=== PATIENT | female | born 1960 | race Caucasian/White ===

== ENCOUNTER → 2017-03-24 09:05 | Outpatient (CLI) | payer MEDICAID ==
[2013-05-07 09:53] VITALS: BMI 27.4
[~2017-03-24 09:05] MED LIST: ADVIL200 MG PO; ANORO ELLIPTA1 EACH INH; CIPRO500 MG PO; COREG 3.1253.125 MG PO; COREG6.25 MG PO; COVARYX TABLET1 TAB PO; LUNESTA2 M1 PO; NEXIUM20 MG PO; PRILOSEC10 MG PO; PRINIVIL20 MG PO; PROVENTIL HFA6.7 GM INH; PROZAC20 MG PO; PROZAC40 MG PO; RESTORIL7.5 MG PO; ROBAXIN-750750 MG PO; SPIRIVA18 MCG INH; SYMBICORT 80-10.2 GM INH; ULTRAM50 MG PO; VANSPAR7.5 MG PO; ZESTRIL20 MG PO
[2017-03-25 10:21] VITALS: BMI 22.9
== END | disposition home or self-care (01) ==
LOC: D.CT 09:05
DX: R10.11 Right upper quadrant pain (principal)

== ENCOUNTER 2017-03-24 16:35 | Inpatient (IN) | payer MEDICAID ==
[~2017-03-24] VITALS: Ht 172.7 cm; Wt 68.5 kg
[~2017-03-24 16:35] MED LIST changes: -ANORO ELLIPTA1 EACH INH; -COREG 3.1253.125 MG PO; -COVARYX TABLET1 TAB PO; -LUNESTA2 M1 PO; -NEXIUM20 MG PO; -PROVENTIL HFA6.7 GM INH; -PROZAC20 MG PO; -ZESTRIL20 MG PO
[2017-03-24 17:09] VITALS: BP 127/79
--- NOTE | 2017-03-24 17:30 | NUR ---
PT RECIEVED VIA DIRECT ADMISSION TO ROOM 2227 VIA ADMISSIONS. PIV SITED X 1 STICK 20 GA TO RIGHT FORARM TOLERATED WELL. PT IS AWAKE AND ALERT ORINETED X 3 LUNGS CLEAR BIALTERALLY BSA X 4 QUADS HAS RIGHT UPPER QUAD TENDERNESS WITH PALPATION ALSO COMPLAINS OF FLANK PAIN TO RIGHT SIDE. ORINETED TO ROOM AND CALL LIGHT SYSTEM.
[2017-03-24] MEDS ORDERED: ZESTRIL20 MG PO (17:33)
[2017-03-24] MEDS ORDERED: COREG 3.1253.125 MG PO (17:34)
[2017-03-24] MEDS ORDERED: PROZAC20 MG PO (17:34)
[2017-03-24] MEDS ORDERED: PROVENTIL HFA6.7 GM INH (17:35)
[2017-03-24] MEDS ORDERED: ANORO ELLIPTA1 EACH INH (17:35)
[2017-03-24] MEDS ORDERED: NEXIUM20 MG PO (17:35)
[2017-03-24] MEDS ORDERED: COVARYX TABLET1 TAB PO (17:36)
[2017-03-24] MEDS ORDERED: LUNESTA2 M1 PO (17:37)
[2017-03-24 18:02] VITALS: BP 127/79; BMI 23.0
[2017-03-24 18:39] LABS: BASOPHILS 0.4 % (0-2); EOSINOPHILS 4.9 % (0-7); HEMATOCRIT 41.2 % (36.0-48.0); HEMOGLOBIN 13.4 g/dL (12-16); IMMATURE GRANULOCYTES 0.3 % (0-5); LYMPHOCYTES 31.2 % (15-50); MCH 29.4 pg (26.0-34.0); MCHC 32.5 g/dL (31.0-37.0); MCV 90.4 fL (80.0-100.0); MEAN PLATELET VOLUME 9.9 fL (7.4-10.4); MONOCYTES 8.7 % (2-11); NEUTROPHILS 54.5 % (40-80); PLATELET COUNT 362 10x3/uL (130-400); RBC 4.56 10x6/uL (4.00-5.40); RDW 14.6 % (11.5-14.5); WBC 9.1 10x3/uL (4.8-10.8)
[2017-03-24 18:50] LABS: ALBUMIN 3.4 g/dL (3.4-5.0); ALKALINE PHOSPHATASE 54 U/L (46-116); ALT (SGPT) 38 U/L (10-68); BILIRUBIN - TOTAL 0.22 mg/dL (0.2-1.3); CALC OSMOLALITY 274 mosm/kg (275-300); CARBON DIOXIDE 28.5 mmol/L (21.0-32.0); CHLORIDE - SERUM 103 mmol/L (98-107); CREATININE - SERUM 0.8 mg/dL (0.6-1.3); GLUCOSE 79 mg/dL (74-106); PROTEIN - SERUM 7.3 g/dL (6.4-8.2); SODIUM 139 mmol/L (136-145); UREA NITROGEN 7 mg/dL (7-18); eGFR NON AFRICAN AMERICAN 78 mL/min (90-120)
[2017-03-24 20:00] VITALS: BP 144/72
--- NOTE | 2017-03-24 20:00 | NUR ---
PT RECEIVED SITTING UP IN BED WATCHING TELEVISION. ASSESSMENT COMPLETED PER FLOWSHEET. PT C/O PAIN IN RUQ. PT DENIES NEEDS AT THIS TIME. CALL LIGHT AND H2O IN PT REACH. BED IN LOW POSITION. SIDE RAILS UP X2.
--- NOTE | 2017-03-24 21:20 | NUR ---
ASSISTED WILNER DYSON IN SETTING UP THE PATIENT'S MAILROOM CLERK PUMP. KIEL EDUCATED THE PATIENT ON THE MEDICATION AND HOW THE MAILROOM CLERK PUMP WORKS. THE PATIENT VERBALIZED UNDERSTANDING. PATIENT HAS A GUEST AT BEDSIDE AND DENIES OTHER NEEDS AT THIS TIME. BED IN LOWEST POSITION AND CALL LIGHT WITHIN REACH. ENCOURAGED THE PATIENT TO CALL IF SHE HAS NEEDS.
[2017-03-25] VITALS (8 sets, daily range): BP systolic 93–133; BP diastolic 55–66; Ht 172.7 cm; Wt 68.5 kg
[2017-03-25 05:57] LABS: BASOPHILS 0.4 % (0-2); EOSINOPHILS 5.7 % (0-7); HEMATOCRIT 40.5 % (36.0-48.0); HEMOGLOBIN 12.9 g/dL (12-16); IMMATURE GRANULOCYTES 0.1 % (0-5); LYMPHOCYTES 31.1 % (15-50); MCH 29.1 pg (26.0-34.0); MCHC 31.9 g/dL (31.0-37.0); MCV 91.4 fL (80.0-100.0); MEAN PLATELET VOLUME 9.8 fL (7.4-10.4); MONOCYTES 9.6 % (2-11); NEUTROPHILS 53.1 % (40-80); PLATELET COUNT 362 10x3/uL (130-400); RBC 4.43 10x6/uL (4.00-5.40); RDW 14.7 % (11.5-14.5); WBC 8.4 10x3/uL (4.8-10.8)
[2017-03-25 06:10] LABS: CALC OSMOLALITY 276 mosm/kg (275-300); CALCIUM 8.4 mg/dL (8.5-10.1); CARBON DIOXIDE 27.7 mmol/L (21.0-32.0); CHLORIDE - SERUM 104 mmol/L (98-107); CREATININE - SERUM 0.8 mg/dL (0.6-1.3); GLUCOSE 96 mg/dL (74-106); POTASSIUM - SERUM 3.7 mmol/L (3.5-5.1); SODIUM 140 mmol/L (136-145); UREA NITROGEN 6 mg/dL (7-18); eGFR NON AFRICAN AMERICAN 78 mL/min (90-120)
--- NOTE | 2017-03-25 08:35 | NUR ---
PT RESTING IN BED WITH EYES OPEN CALL LIGHT IN REACH WILL MONITER PT DENIES PAIN CALL LIGHT IN REACH WILL MONITER
--- NOTE | 2017-03-25 14:56 | NUR ---
PT AOX4 RESP EVEN AND NONLABORED PT DENIES NEEDS AT THIS TIME. PT HERE FOR RENAL CANCER. IV TO RIGHT FOREARM PATENT AND INTACT SRX2 CALL LIGHT WITHIN REACH WITH CONTINUE TO MONITOR BED AT LOWEST SETTING
--- NOTE | 2017-03-25 17:54 | NUR ---
PT RESTING IN BED WITH EYES OPEN CALL LIGHT IN REACH NO PROBLEMS WILL MONITER
--- NOTE | 2017-03-25 20:00 | NUR ---
REC'D IN SITTING ON SIDE OF BED AWAKE AND ALERT. RESP EVEN AND UNLABORED WITH NO DISTRESS NOTED. CAN EXPRESS NEEDS AN WANTS. AMBULATED WITH SLOW AND STEADY GAIT. NO C/O NOTED OR VOICED.ASSESSMENT COMPLETED. C/L IN REACH AT BEDSIDE.
--- NOTE | 2017-03-26 02:51 | NUR ---
PT IS LYING FLAT IN BED WITH EASY RESPIRATIONS AND NO DISTRESS NOTED. THE ROOM IS DARK AND SHE IS SLEEPING. THE BED IS LOW, RAILS UP X'S 2 WITH THE CALL LGIHT AT HAND.
[2017-03-26 04:00] VITALS: BP 109/53
--- NOTE | 2017-03-26 07:15 | NUR ---
PATIENT RECEIVED UP AMBULATING IN ROOM WITHOUT ASSIST. NO SIGNS OF DISTRESS NOTED. DENIES NEEDS.
--- NOTE | 2017-03-26 08:15 | NUR ---
PATIENT SITTING UP IN BED ALERT. NO SIGNS OF DISTRESS NOTED. SCHEDULED MEDICATION ADMINISTERED. DENIES NEEDS. SIDE RAILS UP X2. BED IN LOW POSITION. CALL LIGHT AND SHOE PLANNER BUTTON IN REACH.
[2017-03-26 08:22] VITALS: BP 128/70
--- NOTE | 2017-03-26 10:45 | NUR ---
IV TO RIGHT WRIST SALINE LOCKED FOR SHOWER. DENIES NEEDS.
--- NOTE | 2017-03-26 11:30 | NUR ---
ALERT IN BED RESTING QUIETLY. RESPIRATIONS EVEN AND UNLABORED. SIDE RAILS UP X2. BED IN LOW POSITION. CALL LIGHT IN REACH. DENIES NEEDS.
[2017-03-26 14:04] VITALS: BP 87/54
--- NOTE | 2017-03-26 16:30 | NUR ---
PATIENT IN LOW BANUELOS POSITION RESTING QUIETLY. RESPIRATIONS EVEN AND UNLABORED. SIDE RAILS UP X2. BED IN LOW POSITION. CALL LIGHT IN REACH.
[2017-03-26 16:45] VITALS: BP 118/60
--- NOTE | 2017-03-26 20:00 | NUR ---
REC'D IN BED AWAKE AND ALERT. RESP EVEN AND UNLABORED WITH NO DISTRESS NOTED. NURSE SITTER EXPRESS NEEDS AND WANTS. TURN AND REPOSITION SELF AB WANDA. NO C/O NOTED OR VOICED AT THIS TIME. ASSESSMENT COMPLETED. C/L IN REACH AT BEDSIDE.
[2017-03-26 20:22] VITALS: BP 109/52
--- NOTE | 2017-03-26 23:28 | NUR ---
PATIENT RESTING IN BED AND DENIES NEEDS AT THIS TIME. BED IN LOWEST POSITION AND CALL LIGHT WITHIN REACH. ENCOURAGED THE PATIENT TO CALL IF SHE HAS NEEDS.
[2017-03-27] VITALS (7 sets, daily range): BP systolic 102–165; BP diastolic 46–80
--- NOTE | 2017-03-27 07:30 | NUR ---
PT ASSESSMENT COMPLETE AWAKE AND ALERT ORIENTED X 3 LUNGS CLEAR BIALTERALLY BSA X 4 QUADS PT DENIES BM X 3 DAYS REQUESTING MIRALAX. WILL SPEAK TO REGUARDING NEW ORDER. RESITED PIV UPON ASSESSMENT OF ORIGINAL SITE WAS RED AND BECOMING PAINFUL NO STREAKING NOTED REMOVED AND RESITED TO INNER RIGHT FORARM. 20 GA X 1 STICK TOLERATED WELL ORIGINAL PIV D/C TIP INTACT.
[2017-03-27 10:38] LABS: BASOPHILS 0.5 % (0-2); EOSINOPHILS 4.9 % (0-7); HEMATOCRIT 42.7 % (36.0-48.0); HEMOGLOBIN 13.5 g/dL (12-16); IMMATURE GRANULOCYTES 0.2 % (0-5); LYMPHOCYTES 24.9 % (15-50); MCH 29.2 pg (26.0-34.0); MCHC 31.6 g/dL (31.0-37.0); MCV 92.4 fL (80.0-100.0); MEAN PLATELET VOLUME 9.6 fL (7.4-10.4); MONOCYTES 9.5 % (2-11); PLATELET COUNT 330 10x3/uL (130-400); RBC 4.62 10x6/uL (4.00-5.40); RDW 14.8 % (11.5-14.5); WBC 8.5 10x3/uL (4.8-10.8)
[2017-03-27 10:51] LABS: ALBUMIN 3.2 g/dL (3.4-5.0); ALKALINE PHOSPHATASE 60 U/L (46-116); ALT (SGPT) 67 U/L (10-68); CALC OSMOLALITY 270 mosm/kg (275-300); CALCIUM 8.8 mg/dL (8.5-10.1); CARBON DIOXIDE 31.2 mmol/L (21.0-32.0); CHLORIDE - SERUM 100 mmol/L (98-107); CREATININE - SERUM 0.7 mg/dL (0.6-1.3); GLUCOSE 88 mg/dL (74-106); PROTEIN - SERUM 7.6 g/dL (6.4-8.2); SODIUM 137 mmol/L (136-145); UREA NITROGEN 7 mg/dL (7-18); eGFR NON AFRICAN AMERICAN > 90 mL/min (90-120)
--- NOTE | 2017-03-27 11:15 | NUR ---
PT TO OR AT THIS TIME FOR URETERSCOPY AND BX PREOPPED PER ORDER.
--- NOTE | 2017-03-27 13:29 | NUR ---
RETURNED FROM OR AWAKE AND ALERT ORINETD X 3 ASSISTED TO BATHROOM PT EMPTIED BLADDER OF 1000 ML BLOOD TINGED URINE
--- NOTE | 2017-03-27 15:23 | NUR ---
PT RESTING WELL NO ACUTE DISTRESS NOTED VITAL SIGNS WNL CALL LIGHT IN REACH SIDE RAILS UP X 2
--- NOTE | 2017-03-27 17:38 | NUR ---
Patient Name: MAGDALENA FREEMAN Admission Status: Urgent Accout number: [id number] Admission Date: 03-24-2017 : 1960 Admission Diagnosis: Attending: MAYDA Current LOS: 3 Anticipated DC Date: 03-29-2017 Planned Disposition: Home Primary Insurance: [employer] [place] Discharge Planning Comments: CM MET WITH PATIENT REGARDING D/C NEEDS AND PLANS. PATIENT STATED SHE LIVES WITH HER BOYFRIEND (RAÚL VALERA) AND HE WILL DRIVE HER HOME AT DISCHARGE. PATIENT STATED SHE HAS 3 STEPS W/RAILS TO ENTER HOME AND NO STAIRS INSIDE HOME. PATIENT STATED SHE IS INDEPENDENT AND HAS NO DME AT HOME. PATIENTS PCP IS DR. ORONA AND PHARMACY IS [facility] ON [address] PATIENT REF. HOME HEALTH AND HAD NO OTHER NEEDS FOR DISCHARGE. PCP DR. YEYO DUARTETUSCUM[facility]IA [facility] ON [address] [phone] RAÚL VALERA (DANNI) [phone] Edge Grinder Machine: Priscilla Lloyd Is the patient Alert and Oriented? Yes 0 * How many steps to enter\exit or inside your home? 3 W/RAILS 0 * PCP DR. ORONA 0 * Pharmacy [facility] ON [address] 0 * Preadmission Environment Home with Family 0 * ADLs Independent 0 * Equipment None 0 * List name and contact numbers for known caregivers / representatives who currently or will assist patient after discharge: RAÚL VALERA (TRENTONIENEric) [phone] 0 * Community resources currently utilized None 0 * Additional services required to return to the preadmission environment? Yes 0 * Can the patient safely return to the preadmission environment? Yes 0 * Has this patient been hospitalized within the prior 30 days at any hospital? No 0 Grand Total: 0
--- NOTE | 2017-03-27 22:41 | NUR ---
PATIENT RESTING IN BED. ALERT AND ORIENTED. NO SIGNS OF DISTRESS NOTED. SHIFT ASSESSMENT COMPLETED. SCHEDULED MEDS GIVEN. DENIES ANY NEEDS AT THIS TIME. BED LOW. CALL LIGHT IN REACH
[2017-03-28] VITALS: BP 115/52
--- NOTE | 2017-03-28 02:00 | NUR ---
PT IN BED WITH NO DISTRESS. RESPIRATIONS EVEN AND UNLABORED. SIDE RAILS ARE UP X 2. BED IS LOW. CALL LIGHT IS IN REACH.
[2017-03-28 04:00] VITALS: BP 114/47
[2017-03-28 04:32] LABS: HEPATITIS C ANTIBODY <0.1 (0.0-0.9)
[2017-03-28 04:35] LABS: BASOPHILS 0.5 % (0-2); EOSINOPHILS 4.5 % (0-7); HEMATOCRIT 40.6 % (36.0-48.0); IMMATURE GRANULOCYTES 0.2 % (0-5); LYMPHOCYTES 20.4 % (15-50); MCH 29.2 pg (26.0-34.0); MCV 91.2 fL (80.0-100.0); MEAN PLATELET VOLUME 9.8 fL (7.4-10.4); MONOCYTES 9.7 % (2-11); NEUTROPHILS 64.7 % (40-80); PLATELET COUNT 295 10x3/uL (130-400); RBC 4.45 10x6/uL (4.00-5.40); RDW 14.9 % (11.5-14.5); WBC 10.3 10x3/uL (4.8-10.8)
[2017-03-28 04:49] LABS: ALBUMIN 2.9 g/dL (3.4-5.0); ALKALINE PHOSPHATASE 60 U/L (46-116); ALT (SGPT) 67 U/L (10-68); CALC OSMOLALITY 273 mosm/kg (275-300); CALCIUM 8.6 mg/dL (8.5-10.1); CARBON DIOXIDE 28.8 mmol/L (21.0-32.0); CHLORIDE - SERUM 103 mmol/L (98-107); CREATININE - SERUM 0.7 mg/dL (0.6-1.3); GLUCOSE 90 mg/dL (74-106); POTASSIUM - SERUM 3.9 mmol/L (3.5-5.1); PROTEIN - SERUM 6.5 g/dL (6.4-8.2); SODIUM 138 mmol/L (136-145); UREA NITROGEN 8 mg/dL (7-18); eGFR NON AFRICAN AMERICAN > 90 mL/min (90-120)
--- NOTE | 2017-03-28 07:43 | NUR ---
NO DISTRESS NOTED. AGREE WITH SET BUILDER ASSESSMENT.
--- NOTE | 2017-03-28 07:45 | NUR ---
PT ASSESSMENT COMPLETE NO ACUTE DISTRESS NOTED AWAKE AND ALERT ORINETED X 3 LUNGS CLEAR BILATERALLY URINE WITH BLOOD PRESENT. PT READY TO GO HOME WILL SPEAK WITH ABOUT POTENTIEL DISCHARGE
[2017-03-28 07:59] VITALS: BP 86/40
--- NOTE | 2017-03-28 10:52 | NUR ---
PATIENT ALERT IN BED WITH PRIMARY NURSE WILNER DANIEL AT BEDSIDE. NO SIGNS OF DISTRESS NOTED. DENIES NEEDS. SIDE RAILS UP X2. BED IN LOW POSITION. CALL LIGHT IN REACH.
[2017-03-28 11:38] VITALS: BP 122/62
--- NOTE | 2017-03-28 11:44 | OP ---
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 FINDINGS: No bladder tumors, no tumors in the ureter, extensive papillary tumors in the renal pelvis which include the upper pole of the right kidney. SURGEON: Catracho Carranza MD. ANESTHESIA: General anesthesia by Dr. Hills. PROCEDURES: Cystoscopy, right retrograde pyelogram, right ureteroscopy and biopsy of renal pelvis tumors, right ureteral stent insertion 6-Cuban x 24 cm without string attached. CLINICAL HISTORY: This is a 57-year-old female, who for the past several years, has had episodes of right flank pain and gross hematuria. She had an ultrasound done at [facility] several years ago, which suggested that she may have a right renal mass. However, for some reason rather, this was never followed up upon. She finally could not tolerate the flank pain and gross hematuria anymore and she came to see her family doctor. A CT scan was performed and this showed a large renal pelvis upper pole tumor causing right-sided hydronephrosis. In fact, there was virtually no parenchyma left in the right kidney. There was ____ occluding the level of the UP junction also and thus causing hydronephrosis. The ureters appeared clear and the bladder was somewhat deflated, so the entire mucosa could not be seen. There is also extensive lymphadenopathy in the regional lymph nodes. There is a left liver lobe 1-cm lesion, which is still questionable. She had a bone scan done on the weekend and this showed no bony metastasis. Chest CT also showed no lesions in the chest. She comes now to have a tissue diagnosis of the tumor and also to place a right ureteral stent in order to relieve the hydronephrosis and relieve her flank pain. She was given Ancef 1 g IV television audio engineer to the OR. DESCRIPTION OF PROCEDURE: The patient was given induction of general anesthesia. She was then placed in the dorsal lithotomy position and prepped and draped. A 21-Cuban cystoscope with 30-degree lens was used for visualization. She has single ureteral orifices on each side. No bladder tumors were seen. A 5-Cuban open-ended ureteral catheter was inserted into the right ureteral orifice and a retrograde pyelogram was performed. The ureters appeared clear and there was no hydronephrosis of the ureter. However, only the inferior pole calices of the right kidney were visible. The rest of the kidney was not visible at all in basically a transverse horizontal line where the tumor had cut off the contrast. We inserted a Sensor wire through the lumen of the open-ended ureteral catheter up into the renal pelvis. The open-ended ureteral catheter was then removed and we placed the UroMax balloon dilator, a 21-Cuban x 4 cm into the right ureteral orifice. The orifice was dilated using 18 atmospheres of pressure on the balloon. The balloon pressure was maintained only for a few seconds and then the balloon was deflated and removed entirely. The cystoscope was then removed, leaving the Sensor wire in place. We used a rigid ureteroscope going beside the wire. The ureter is completely clear of tumor. There is definitely a strictured area at the UP junction, which is OPERATIVE REPORT [id number] MAGDALENA FREEMAN rather narrow. I managed to get past it with the scope. It is not rigidly strictured, but it seems to be from tissue extrinsic compression. The scope managed to get pass easily. Going into the renal pelvis itself, we could see the extensive papillary fronds within the renal pelvis consistent with papillary transitional cell carcinoma, which is undoubtedly also invasive into the renal mass. The Piranha biopsy forceps was introduced and brought down to the base of the tumor at one site. We then closed the jaws and removed the entire scope to withdraw our specimen. The scope was put in once more and another specimen of the tumor was taken. These were placed into formalin on [facility]. At this point, we removed the ureteroscope and backloaded the guidewire onto the cystoscope. Over the guidewire, we inserted a 6-Cuban x 24 cm ureteral stent. The string on the distal end of the stent has been removed. Once the stent was in correct position, the wire was withdrawn entirely. The distal end of the stent was pushed into the bladder using the pusher. With the stent being in correct position, we then drained the bladder through the cystoscope and then removed the cystoscope. The patient was then awakened and brought to the recovery room in good condition. TRANSINT:[id number] Voice Confirmation ID: [id number] DOCUMENT ID: [id number] CATRACHO CARRANZA MD at 1144 CC: [id number] DICTATION DATE: 03/27/17 1248 FORESTRY AND WILDLIFE MANAGER: 03/27/17 2241 ADM IN [place] [id number] [place] [id number]
--- NOTE | 2017-03-28 12:30 | NUR ---
PT DISCHARGED TO HOME WITH SPOUSE VIA WHEELCHAIR
--- NOTE | 2017-03-28 16:15 | NUR ---
WASTED 80 MG DEMEROL FROM READING EFFICIENCY COURSE DIRECTOR IN [place]ARPS WITNESSED PER UNIT NURSE STAGING TECHNICIAN Antonia MORALES RN
== END 2017-03-28 13:21 | disposition home or self-care (01) | DRG 687 ==
LOC: D.MS 16:35
PROVIDERS: Emergency Medicine; Internal Medicine Hematology & Oncology; Urology; ADMIT Emergency Medicine
PROC: BT1D1ZZ Fluoroscopy of Right Kidney, Ureter and Bladder using Low Osmolar Contrast (ICD-10-PCS; 2017-03-27)
PROC: 0TB38ZX Excision of Right Kidney Pelvis, Via Natural or Artificial Opening Endoscopic, Diagnostic (ICD-10-PCS; principal; 2017-03-27 12:00)
PROC: 0T768DZ Dilation of Right Ureter with Intraluminal Device, Via Natural or Artificial Opening Endoscopic (ICD-10-PCS; 2017-03-27 12:00)
DX: C65.1 Malignant neoplasm of right renal pelvis (principal); C77.5 Secondary and unspecified malignant neoplasm of intrapelvic lymph nodes; N13.30 Unspecified hydronephrosis; K76.9 Liver disease, unspecified; N39.3 Stress incontinence (female) (male); J44.9 Chronic obstructive pulmonary disease, unspecified; K21.9 Gastro-esophageal reflux disease without esophagitis; J20.9 Acute bronchitis, unspecified; R91.8 Other nonspecific abnormal finding of lung field; G89.29 Other chronic pain; F32.9 Major depressive disorder, single episode, unspecified

== ENCOUNTER 2017-04-10 05:06 | Inpatient (IN) | payer MEDICAID ==
[2017-04-07 12:03] LABS: BASOPHILS 0.6 % (0-2); EOSINOPHILS 4.7 % (0-7); HEMATOCRIT 41.5 % (36.0-48.0); HEMOGLOBIN 13.7 g/dL (12-16); IMMATURE GRANULOCYTES 0.4 % (0-5); LYMPHOCYTES 27.2 % (15-50); MCH 29.8 pg (26.0-34.0); MCV 90.4 fL (80.0-100.0); MEAN PLATELET VOLUME 9.8 fL (7.4-10.4); MONOCYTES 9.1 % (2-11); PLATELET COUNT 447 10x3/uL (130-400); RBC 4.59 10x6/uL (4.00-5.40); RDW 14.7 % (11.5-14.5)
[2017-04-07 12:11] LABS: APTT 27.7 SECONDS (22.8-39.4); INR 0.99 (0.85-1.17)
[2017-04-07 12:23] LABS: ANION GAP 13.3 mmol/L (8-16); CALCIUM 8.6 mg/dL (8.5-10.1); CARBON DIOXIDE 26.9 mmol/L (21.0-32.0); POTASSIUM - SERUM 4.2 mmol/L (3.5-5.1)
[~2017-04-10] VITALS: Ht 172.7 cm; Wt 68.6 kg
[2017-04-10] VITALS (14 sets, daily range): BP systolic 78–118; BP diastolic 55–73; BMI 22.0
--- NOTE | ~2017-04-10 | OP ---
PATIENT NAME: MAGDALENA FREEMAN MEDICAL RECORD: [id number] :58 LOCATION:[facility] D.2306 ADMISSION DATE:04/10/17 SURGEON: IFEOMA SORENSON MD DATE OF OPERATION: 04/10/2017 PREOPERATIVE DIAGNOSIS: Retroperitoneal adenopathy. POSTOPERATIVE DIAGNOSIS: Retroperitoneal adenopathy. PROCEDURE: Retroperitoneal lymph node sampling. PROCEDURE IN DETAIL: I assisted Dr. Arteaga with hand-assisted laparoscopic right nephroureterectomy. I was the primary surgeon for lymph node sampling of the aorta as well as mily tissue along the right iliac system. We were already performing the hand-assisted approach and had kocherized the duodenum. We visualized the inferior vena cava as well as the aorta. There were some partially calcified lymph nodes on the aorta. These were removed through a combination of sharp dissection, blunt dissection as well as some metallic clips in order to reduce the chance of a chylous ascites. Two very large nodes were removed from the aorta. I identified a borderline size of the lymph node along the right iliac chain and this was excised as well. There was no bleeding involved. TRANSINT:[id number] Voice Confirmation ID: [id number] DOCUMENT ID: [id number] IFEOMA SORENSON MD CC: [id number] DICTATION DATE: 04/11/17 1419 CARCASS TRIMMER: 04/11/17 4018 ADM IN [facility] [address] [place] [id number]
--- NOTE | ~2017-04-10 | OP ---
PATIENT NAME: MAGDALENA FREEMAN MEDICAL RECORD: [id number] :58 LOCATION:.[facility] D.2306 ADMISSION DATE:04/10/17 SURGEON: CATRACHO SORENSON MD DATE OF OPERATION: 04/10/2017 Assistance Note I assisted Dr. Catracho Arteaga with the hand-assisted laparoscopic right nephroureterectomy. My involvement in the procedure was that I was present during the entire procedure. I was present from the initial skin incision to the final staple to closure. My involvement in the operation includes making a right groin incision, dissecting down to the aponeurosis of the external oblique, incising the external oblique, moving the rectus abdominis muscles medially, entering the peritoneal cavity, assistance with placement of the GelPort. There were some adhesions present within the abdomen. I took down some of the adhesions. I incised along the right white line of Toldt. I took down some adhesions from the patient's prior cholecystectomy as well. The adhesiolysis was performed utilizing the Harmonic scalpel with my hand. I kocherized the duodenum. I did some dissection around the kidney; however, Dr. Arteaga did most of this dissection. My involvement also include lymph node sampling. I previously reviewed the patient's CT scan. The lymph node sampling is dictated separately as I was the primary physician for that portion of the procedure. I assisted with exteriorizing the right kidney. I assisted with Bovie dissection down through the periureteral structures. I assisted with retraction of the right ureter as Dr. Arteaga performed a transurethral cystoscopic resection of a rim of tissue around the right ureteral orifice. My involvement also included oversewing this defect. Dr. Arteaga then instilled water into the bladder and we saw no leakage of water. This closure was a running 2-0 Vicryl closure. I then overran this with another 2-0 Vicryl. I partially reperitonealized the right lower quadrant with a running 2-[address] Arteaga and I had placed a hemostatic agent under the right segment of the liver. We found no evidence of bleeding. Meticulous hemostasis was achieved with electrocautery. Lap disc device was removed. I closed the muscular layers initially with running 2-0 Vicryl. The external oblique aponeurosis was closed with a running #1 Vicryl. Krypton were used for the cutaneous closure. The trocar site at the umbilicus was closed with 0 Vicryl suture. The fascia in the epigastrium was closed with a 0 Vicryl suture. Valentina were used for the cutaneous closure. TRANSINT:[id number] Voice Confirmation ID: [id number] DOCUMENT ID: [id number] CATRACHO SORENSON MD CC: [id number] DICTATION DATE: 04/11/17 1416 BRAKE ASSEMBLER: 04/12/17 0043 ADM IN [facility] [address] [place] [id number]
[~2017-04-10 05:06] MED LIST changes: +ANORO ELLIPTA1 EACH INH; +COREG 3.1253.125 MG PO; +COVARYX TABLET1 TAB PO; +LUNESTA2 M1 PO; +MEPERIDINE HCL50 MG PO; +NEXIUM20 MG PO; +PROVENTIL HFA6.7 GM INH; +PROZAC20 MG PO; +ZESTRIL20 MG PO
--- NOTE | 2017-04-10 09:21 | NUR ---
DR PETERSEN NOTIFIED OF BLOOD PRESSURES ON BOTH SIDES.
--- NOTE | 2017-04-10 15:46 | NUR ---
DR CARRANZA DC YOUNGBLOOD INTACT BEFORE CYSTOSCOPE PART OF PERCEDURE 16FR TEMP CRITICORE INSERTED DRAINAGE OUT NOTED ON INSERTION. STAT LOCK ON RIGHT THIGH.
--- NOTE | 2017-04-10 16:33 | NUR ---
DRAIN WAS NOT PLACED. REQUESTED BY , OPENED ON FIELD BUT MD DID NOT PUT IN .
--- NOTE | 2017-04-10 16:55 | NUR ---
REC'D FROM RECOVERY, DROWSY, AROUSES TO VERBAL STIMULI, FOLLOWS COMMANDS, 3L NC, VSS, LEFT SC DL WITH CVP READING 18, DOPAMINE INFUSING AT 5 MCG, LEFT RADIAL ABHILASH IN PLACE, BOTH LINES FLUSHED AND ZEROED, ABDOMIN WITH DRESSINGS X3, CDI, CC YOUNGBLOOD TO GRAVITY, SCD'S B/L, ASSESSMENT COMPLETE PER FLOWSHEET, C/O PAIN 05/29, EPIDRAL IN PLACE WITH PCEA SET UP, ENCOURAGED USE, SIGNIFICANT OTHER CALLED TO BEDSIDE, STATUS UPDATED, VOICES NO NEEDS AT THIS TIME
--- NOTE | 2017-04-10 18:15 | NUR ---
DR. CARRANZA AT BEDSIDE, COUNSLED WITH PATIENT AND SIGNIFICANT OTHER, NEW ORDERS GIVEN
--- NOTE | 2017-04-10 18:30 | NUR ---
CLEAR LIQUIDS TO BEDSIDE, TOLERATING WITHOUT NAUSEA
--- NOTE | 2017-04-10 19:30 | NUR ---
REC'D TO CARE, SHEET ROCKER PER FLOWSHEET. PT AWAKE AND ORIENTED, VSS. IVF INFUSING TO L DLSC, DSG C/D/I - SEE FLOWSHEET. LUNGS CTA. CM - SR. L RADIAL A-LINE, FLUSHED AND ZEROED, WAVE FORM NOTED TO BE POSITIONAL, NIBP CORRILATES. ABD DSGS NOTED, TENDER TO TOUCH. PT REPORTS ADEQUATE PAIN RELIEF WITH EPIDURAL - SEE FLOWSHEET. CRITICORE YOUNGBLOOD PATENT WITH YELLOW, BLOOD-TINGED URINE NOTED. PT GIVEN FRESH WATER PER REQUEST, VSS. C/L IN REACH.
--- NOTE | 2017-04-10 21:00 | NUR ---
VISITORS AT BS, VSS.
--- NOTE | 2017-04-10 23:15 | NUR ---
PT C/O SOB, REQUESTS "MY INHALER". DR. PLATA HERE AND NOTIFIED, NEW ORDER FOR ALBUTEROL INHALER REC'D AND MANDREL CLEANER NOTED - ORDER FAXED TO [facility]
--- NOTE | 2017-04-10 23:39 | NUR ---
PT RESTING QUIETLY AT THIS TIME, NO SIGN OF DISTRESS. VSS.
[2017-04-11] VITALS (45 sets, daily range): BP systolic 78–146; BP diastolic 55–90; Ht 172.7 cm; Wt 68.6 kg
--- NOTE | 2017-04-11 01:15 | NUR ---
PT GIVEN FRESH ICE WATER PER REQUEST. REPORTS "SLEEP FOR SHORT PERIODS AT A TIME".. ASSISTED UP IN BED FOR COMFORT, DENIES OTHER NEEDS. C/L IN USE.
--- NOTE | 2017-04-11 03:23 | NUR ---
REASSESSMENT PER FLOWSHEET, NO ACUTE CHANGES. AWAKENS EASILY. NO C/O AT THIS TIME. VSS. C/L IN REACH.
--- NOTE | 2017-04-11 05:24 | NUR ---
PT GIVEN WARM PACK FOR C/O NECK DISCOMFORT. DENIES OTHER NEEDS.
--- NOTE | 2017-04-11 06:13 | NUR ---
NO VISITORS, PT RESTING WITH EYES CLOSED, NO SIGN OF DISTRESS.
--- NOTE | 2017-04-11 08:58 | OP ---
PATIENT NAME: MAGDALENA FREEMAN MEDICAL RECORD: [id number] :58 LOCATION:[facility] [id number] ADMISSION DATE:04/10/17 SURGEON: IFEOMA CARRANZA MD DATE OF OPERATION: 04/10/2017 SURGEON: Ifeoma Carranza MD. TEXTILE CUTTING MACHINE OPERATOR: Ifeoma Potter MD. ANESTHESIA: General anesthesia by Jaime Armendariz MD. 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 FINDINGS: Right upper pole renal mass, hard lymphadenopathy in the aortocaval region, papillary masses around the right ureteral orifice. PROCEDURE: Laparoscopic hand-assisted right radical nephroureterectomy with cystoscopy for excision of the right ureteral orifice. Dr. Potter is the primary surgeon for lymph node resection. SPECIMENS: 1. Right kidney, ureter and stent. 2. Intraaortic aortocaval lymph node. 3. Right pericaval lymph node. 4. Intra-aortocaval lymph node, towards the aortic bifurcation. 5. Right iliac lymph nodes. ESTIMATED BLOOD LOSS: 150 mL. COMPLICATIONS: None. CLINICAL HISTORY: The patient is a 57-year-old female, who smokes heavily about 2 packs a day. For about 6 years now she has had gross hematuria episodes of the right flank pain. She was initially seen in [facility] for this, but for some reason unknown to me, a diagnosis was not pursued even though she was told that she had a possible right renal mass at that time. She came to this hospital with severe pain. A CT scan shows a large mass in the right upper pole and renal pelvis, which has caused chronic obstruction of the right kidney, leading to hydronephrosis and loss of renal parenchyma. She also had extensive lymphadenopathy and 10 mm nodule of the left lobe of the liver. Metastatic workup was done including a bone scan, which was negative. Chest CT was negative for metastatic disease. She does have emphysema and COPD. I performed ureteroscopy and insertion of a stent to relieve her pain. During the ureteroscopy, I tried to biopsy the renal pelvis tumors. Pathology said there was insufficient tissue for diagnosis. Today, were undergoing a right nephroureterectomy for palliation as well as for diagnosis and we will also be dissecting the intra-aortocaval lymph nodes, which are enlarged and matted, also for diagnosis. She is aware that if there is metastatic disease that this OPERATIVE REPORT [id number] FREEMANMAGDALENA PRASHANT surgery will not be curative. However, it will allow her to have pain relief from constant right flank pain and also allow us to get a diagnosis of cancer so that she would be a candidate for chemotherapy, if required. She has had a complete bowel prep over the weekend, she also had cross matched for 2 units of packed red blood cells. She is aware that we may have to convert to open surgery. I did arrange for her to have a stay in the ICU after the surgery. She was given Ancef 1 gram IV personal lines insurance advisor to the OR. DESCRIPTION OF PROCEDURE: The patient was placed in supine position on a beanbag and given induction of general anesthesia. Anesthesia also placed a central line and an arterial line into the patient. We put a Joe catheter into the patient, prepped and draped her. The beanbag on the left side was raised up into a ledge to hold the patient's when we tilted the table so that the right side would be up. On the right lower quadrant, a Cottrell-type incision was marked out. The incision was 7.5 cm long. The incision was made and then a muscle splitting approach was used by Dr. Potter to get into the peritoneum. We then put the Gelport frame into the wound. We then put the Gelport on to the frame and placed a 10 mm trocar through and started insufflating the abdomen. We had a 12 mm working port at the umbilicus where she has had previous surgery. Also, fpc between the umbilicus and xiphoid process, was another 10 mm port for our camera. Going into the abdominal cavity, we noted first that she had a lot of adhesions from her prior surgery. These were taken down by Dr. Potter using the Harmonic scalpel. We then mobilized the colon by dissecting the peritoneum along the line of Toldt lateral to the colon. This was taken from the pelvic brim all the way up to the hepatic flexure. At this point, we also dissected the plane between the superior pole of the kidney and the undersurface of the right liver lobe. This was done with the Harmonic scalpel. Adhesions between the liver and the colon were also taken down. As we approached medially, we encountered the duodenum and this was kocherized and moved medially. Once we mobilized the duodenum away, we could palpate the inferior vena cava and the aorta. Within this area, was quite significant lymphadenopathy, which was hard to palpation. We then made sure that the colon was entirely mobilized and retracted medially and inferiorly away from the anterior surface of the kidney. Once the anterior surface of the kidney was fully exposed, we then started working from lateral to medial. The Gerota's fascia posteriorly was freed up from the posterior retroperitoneal wall. This was done with blunt dissection using the fingers. Also, we came laterally to medially across the Gerota's fascia until we encountered the ureter. The patient still has the ureteral stent from my previous procedure. This facilitated palpation of the ureter. I went around the ureter with dissecting finger. Finally, we came down around the lower pole of the kidney to the region of the hilum. Because it was very difficult to palpate the renal artery even though I palpated the entire hilar length, we decided to use the stapler along the entire medial surface of the kidney. The medial surface of the kidney was dissected so that there was a clear space between the kidney and the inferior vena cava. An Endo-MAHESH stapler with a vascular load 35mm in length was used and we continued to go from inferiorly to cranially on the kidney medial surface with the stapler. Finally, we came towards the superior pole of the kidney where we presumed the pedicle would lie. This was rather thickened so we had to use some dissection with the Harmonic scalpel to thin out the tissue here. As the 35mm stapler was insufficient to open widely enough to encompass all this tissue, we used a 45mm stapler here with the vascular load. These are fired. We then went cranially and laterally around the superior surface OPERATIVE REPORT [id number] MAGDALENA FREEMNA of the kidney and fired another staple load here in order to cut off the adrenal vessels and keep the adrenal gland with the specimen. At this point, the kidney was entirely free and we could mobilize it inferiorly towards the pelvis. Dr. Potter then performed the lymph node biopsy in the aortocaval region. He will dictate his portion of the surgery separately. Once the lymph nodes were out, we then removed the Gelport cover. The kidney was brought out of the abdomen through the Gelport site. We did also place Surgicel sheets in the region of the renal fossa and the undersurface of the kidney prior to removing the Gelport cover. We further dissected the ureter distally until we came across its insertion into the bladder. Stay sutures of 2-0 silk were applied on either side of the ureter with full-thickness on the bladder in order to lift up the bladder wall where the ureter was inserting. Using Metzenbaum scissors, we dissected around the ureter through the intramural tunnel of the ureter in Waldeyer's sheath down to the level of the mucosa. Here, we then placed the patient into a lithotomy position with stirrups. She was prepped and draped again. I used a resectoscope 27-Kuwaiti with a Paco's knife electrode and the right ureteral orifice was circumscribed with the electrode. I went all the way around to free the ureteral orifice. There are some papillary mass on the mucosa around the ureteral orifice and this may be inflammatory, I decided to make sure that the circumscribing incision was wide enough to encompass all these papillary tissue. The left ureteral orifice was seen and it was left intact. Urine was seen coming from the left ureteral orifice. No bladder tumors were seen aside from the papillary mass around the right ureteral orifice. With further dissection of the intramural ureter with the Paco's knife, the entire specimen came free. The kidney with its attached ureter and still with an indwelling stent was placed in formalin and sent to pathology. During our distal ureteral dissection, it should be noted that we also put several clips on the ureter to prevent any tumor cell migration distally down the stent. At this point, with the scope still in the bladder, 3-0 Vicryl sutures were used in full-thickness bites to close the defect in the bladder where the ureter had been removed. Using the cystoscope irrigation, the bladder was inflated and no leakage was seen. A second layer, which is seromuscular was taken with a 3-0 Vicryl. The procedure having been completed, the scope was removed and another 16-Kuwaiti Joe catheter was placed into the bladder and put to bag drainage. The Joe catheter will have to remain for at least 2 weeks and then we will obtain a cystogram to make sure there is no leakage before having it removed. We then worked on our sponge and instrument counts. While looking at the wound where the Gelport was at Dr. Breving noticed, another hard node in the iliac region and this was also taken as the biopsy specimen. The Gelport frame was removed entirely. Closure of the Cottrell incision was in 2 layers. The first layer took the transversus abdominis and internal oblique. The second layer took the aponeurosis of the external oblique and whatever rectus fascia we found. The skin was then closed with alexandre. A 3-0 Vicryl was also used to close the trocar sites that contained the 12 and the 10-mm trocars. We had made a 5-mm trocar entry site to hold the liver retractor during the nephrectomy portion of the surgery. This was closed simply with skin alexandre. All incisions were closed with skin alexandre. I had intended to place a Hayden-Denney drain in the pelvis, but in our attempt to close the bladder and the abdominal wound, this had been missed. We cannot put it now, so we will have to leave her without a Hayden-Denney drain in the pelvis. The patient was extubated and brought to the recovery room. She will be sent to the intensive care unit for close monitoring. OPERATIVE REPORT [id number] MAGDALENA FREEMAN TRANSINT:[id number] Voice Confirmation ID: [id number] DOCUMENT ID: [id number] IFEOMA CARRANZA MD at 0858 CC: [id number] DICTATION DATE: 04/10/171551 OWNER/OPERATOR: 04/11/17 0133 ADM IN [facility] [address] [place] [address]
[2017-04-11 09:50] LABS: BASOPHILS 0.1 % (0-2); EOSINOPHILS 0.5 % (0-7); HEMATOCRIT 37.5 % (36.0-48.0); HEMOGLOBIN 12.4 g/dL (12-16); IMMATURE GRANULOCYTES 0.3 % (0-5); LYMPHOCYTES 12.9 % (15-50); MCH 29.4 pg (26.0-34.0); MCHC 33.1 g/dL (31.0-37.0); MCV 88.9 fL (80.0-100.0); MEAN PLATELET VOLUME 9.6 fL (7.4-10.4); NEUTROPHILS 79.2 % (40-80); RBC 4.22 10x6/uL (4.00-5.40); RDW 14.5 % (11.5-14.5); WBC 7.6 10x3/uL (4.8-10.8)
[2017-04-11 09:52] LABS: PLATELET COUNT 337 10x3/uL (130-400)
[2017-04-11 10:07] LABS: ANION GAP 10.4 mmol/L (8-16); CALCIUM 7.8 mg/dL (8.5-10.1); CARBON DIOXIDE 27.7 mmol/L (21.0-32.0); CREATININE - SERUM 1.1 mg/dL (0.6-1.3); POTASSIUM - SERUM 4.1 mmol/L (3.5-5.1)
--- NOTE | 2017-04-11 14:10 | NUR ---
0700- ASSESSMENT COMPLETE PER FLOW SHEET. RESTING IN BED, VSS. NO NEEDS VOICED. 0845- DR CARRANZA AT BEDSIDE, NEW ORDERS REC'D. 0915- AM MEDICATIONS GIVEN PER MAR WITHOUT PROBLEM. 1030- ART LINE D/C'D WITH CATHETER INTACT PER ORDERS FROM DR. CARRANZA. 1150- PT C/O ITCHING ON HANDS AND FEET AND NUMBNESS IN LEGS AND FEET. ANESTHESIA NOTIFIED. NEW ORDERS REC'D AND IMPLEMENTED. 1205- DR. PETERSEN AT BEDSIDE SPEAKING WITH PT. EPIDURAL REMOVED PER PT REQUEST. 1400- RESTING IN BED WITH EYES CLOSED,VSS. NO C/O AT THIS TIME. STATES "SHE FEELS BETTER."
--- NOTE | 2017-04-11 15:08 | NUR ---
Is the patient Alert and Oriented? Yes 0 * How many steps to enter\exit or inside your home? 3 0 * PCP DR. ORONA 0 * [facility] [address] * Preadmission Environment Home with Family 0 * ADLs Independent 0 * Equipment None 0 * List name and contact numbers for known caregivers / representatives who currently or will assist patient after discharge: ROOMMATE: RAÚL VALERA [phone] 0 * Community resources currently utilized None 0 * Additional services required to return to the preadmission environment? No 0 * Can the patient safely return to the preadmission environment? Yes 0 * Has this patient been hospitalized within the prior 30 days at any hospital? Yes PATIENT IS AWAKE AND ALERT. SHE STATES SHE LIVES WITH HER ROOMMATE, RAÚL VALERA. HE WILL BE AVAILABLE TO DRIVE HER HOME AT DISCHARGE AND ASSIST HER NEEDED. PATIENT'S PCP IS DR. ORONA. [facility]. PATIENT DENIES USE OF ANY DME AND DENIES EVER HAVING HOME HEALTH CARE. PATIENT STATES SHE WAS INDEPENDENT IN ALL ADL'S PRIOR TO COMING TO THE HOSPITAL. THERE ARE 3 STEPS TO ENTER HER HOME. NO DISCHARGE NEEDS IDENTIFIED AT THIS TIME.
--- NOTE | 2017-04-11 17:56 | NUR ---
1530- FAMILY AT BEDSIDE. VSS. NO C/O AT THIS TIME. WILL CONTINUE TO MONITOR. 1704- C/O ABDOMINAL PAIN. DEMEROL GIVEN PER ORDER.
--- NOTE | 2017-04-11 19:15 | NUR ---
REC'D TO CARE, SENIOR DATA WAREHOUSE DEVELOPER PER FLOWSHEET. PT AWAKE AND ORIENTED. VSS. IVFS TO L DLSC, DSG C/D/I. LUNGS WITH FAINT CRACKLES B/L, PT REPORTS BEING HEAVY SMOKER. ABD ROUNDED, BS HYPOACTIVE, ABD TENDER. LAP DRSGS NOTED TO ABD, C/D/I. CRITICORE YOUNGBLOOD PATENT AND DRAINING YELLOW, PINK-TINGED URINE. ALARMS ON AND C/L IN REACH.
--- NOTE | 2017-04-11 20:12 | NUR ---
prn mylicon given for c/o "gas pains". denies other needs.
--- NOTE | 2017-04-11 21:18 | NUR ---
DR. CARRANZA NOTIFIED OF UNRESOLVED GAS PAIN - NEW ORDERS REC'D.
--- NOTE | 2017-04-11 21:53 | NUR ---
PT OOB, AMBULATED 100FT WITH NURSE. BACK TO ROOM AND UP IN CHAIR. LINENS CHANGED. PM CARE AND YOUNGBLOOD CARE DONE. ADMIN PRN DULCOLAX AND PT BACK IN BED. ALARMS ON AND C/L IN REACH.
--- NOTE | 2017-04-11 22:51 | NUR ---
UP TO BSC, 100ML LIQUID BROWN STOOL AND + FLATUS. TERI-CARE PER PT.
--- NOTE | 2017-04-11 23:04 | NUR ---
PT REPORTS GAS PAIN "MUCH BETTER", PRN DEMEROL GIVEN FOR INCISIONAL PAIN. ALARMS ON AND C/L IN USE.
[2017-04-12] VITALS (19 sets, daily range): BP systolic 108–161; BP diastolic 56–87
--- NOTE | 2017-04-12 01:30 | NUR ---
UP TO BSC, SMALL AMT LOOSE BROWN STOOL NOTED. TERI-CARE PER PT AND BACK TO BED. REPORTS "MAURILIO BEEN BELCHING ALOT", ABD SOFT, LESS ROUNDED. ALARMS ON AND C/L IN REACH.
--- NOTE | 2017-04-12 02:44 | NUR ---
ADMIN PRN DEMEROL FOR C/O PAIN. PT REPOSITIONS SELF NEEDED. FRESH WATER AT BS. ALARMS ON AND C/L IN REACH.
--- NOTE | 2017-04-12 03:20 | NUR ---
PT RESTING WITH EYES CLOSED, NO SIGN OF DISTRESS. VSS.
--- NOTE | 2017-04-12 05:24 | NUR ---
I AND O CHARTED, PT DENIES NEEDS.
--- NOTE | 2017-04-12 07:00 | NUR ---
ASSESSMENT COMPLETE PER FLOW SHEET.. RESTING IN BED, VSS. NO NEEDS VOICED.
--- NOTE | 2017-04-12 07:52 | NUR ---
C/O ABDOMINAL PAIN. DEMEROL GIVEN PER ORDERS.
--- NOTE | 2017-04-12 08:11 | NUR ---
AM MEDICATIONS GIVEN PER MAR WITHOUT PROBLEM.
--- NOTE | 2017-04-12 16:27 | NUR ---
1100- REASSESSMENT COMPLETE PER FLOWSHEET. NO CHANGES NOTED. 1230- REC'D ORDERS FROM DR. CARRANZA TO TRANSFER PT TO FLOOR. 1400- RESTING QUIETLY IN BED, VSS. NO NEEDS VOICED.
--- NOTE | 2017-04-12 19:00 | NUR ---
REPORT RECEIVED AND ASSESSMENT COMPLETED. SEE FLOWSHEET FOR FULL DETAILS. VSS. PT HAS MULTIPLE ABDOMINAL INCISIONS. DRESSINGS REMOVED BY MD DURING DAY SHIT. ALL INCISIONS ARE CLEAN. NO SIGN OF DEHISCINCE.
--- NOTE | 2017-04-12 21:00 | NUR ---
2100 MEDS GIVEN. NO OTHER CHANGES IN STATUS AT THIS TIME. VSS. WILL CONTINUE TO MONITOR
--- NOTE | 2017-04-12 23:00 | NUR ---
NO CHANGE IN STATUS AT THIS TIME. VSS. WILL MONITOR.
--- NOTE | 2017-04-12 23:00 | NUR ---
REASSESSMENT COMPLETED. SEE FLOWSHEET FOR FULL DETAILS. VSS. NO OTHER CHANGES AT THIS TIME.
[2017-04-13] VITALS (12 sets, daily range): BP systolic 110–131; BP diastolic 64–100
--- NOTE | 2017-04-13 01:00 | NUR ---
PT SLEEPING IN ROOM VSS.BED IN LOW POSITION CALL LIGHT IN REACH.
--- NOTE | 2017-04-13 03:00 | NUR ---
NO CHANGES IN STATUS AT THIS TIME.
[2017-04-13 04:18] LABS: BASOPHILS 0 % (0-2); EOSINOPHILS 6.5 % (0-7); HEMATOCRIT 33.1 % (36.0-48.0); HEMOGLOBIN 11.1 g/dL (12-16); IMMATURE GRANULOCYTES 0.3 % (0-5); MCH 28.5 pg (26.0-34.0); MCHC 33.5 g/dL (31.0-37.0); MEAN PLATELET VOLUME 9.9 fL (7.4-10.4); MONOCYTES 8.2 % (2-11); RDW 14.3 % (11.5-14.5)
[2017-04-13 04:22] LABS: MCV 84.9 fL (80.0-100.0); PLATELET COUNT 220 10x3/uL (130-400); WBC 3.1 10x3/uL (4.8-10.8)
[2017-04-13 04:37] LABS: ANION GAP 12.2 mmol/L (8-16); CALCIUM 8.3 mg/dL (8.5-10.1); CARBON DIOXIDE 25.5 mmol/L (21.0-32.0); CREATININE - SERUM 1.1 mg/dL (0.6-1.3); POTASSIUM - SERUM 3.7 mmol/L (3.5-5.1)
--- NOTE | 2017-04-13 05:00 | NUR ---
NO CHANGES IN STATUS AT THIS TIME. NO C/O PAIN. OR DISCOMFORT. AM LABS DRAWN BY LAB DUE TO LINE NOT DRAWING. FLUSHES FINE.
--- NOTE | 2017-04-13 08:18 | NUR ---
UP IN BED EATING BREAKFAST AT THIS TIME. DENIES ANY NEEDS. PT IS INDEPENDENT IN BED. NO ACUTE DISTRESS NOTED. WILL CONTINUE PLAN OF CARE.
--- NOTE | 2017-04-13 09:48 | NUR ---
NUTRITION MONITORING & EVAL CHART REVIEWED. NURSING REPORTS PT TOLERATING REG DIET. MINIMAL INTAKE AT BREAKFAST. WILL CONTINUE TO PROVIDE DIET, MONITOR PT PROGRESS. RD FOLLOWING
--- NOTE | 2017-04-13 10:33 | NUR ---
LYING IN BED RESTING AT THIS TIME. NO ACUTE DISTRESS NOTED. AWAKENS EASILY WHEN STAFF STATES PT NAME. CALL LIGHT IN REACH, ABLE TO STATE NEEDS. WILL CONTINUE PLAN OF CARE.
--- NOTE | 2017-04-13 12:43 | NUR ---
DR SORENSON SEEING PT AT THIS TIME, NOTED PT COMPLAINT OF NAUSEA. ORDERS PLACED. EMESIS NOTED. WILL CONTINUE PLAN OF CARE.
--- NOTE | 2017-04-13 13:35 | NUR ---
PO ZOFRAN ADMIN AT THIS TIME PER ORDERS, PT THEN NOTED EMESIS X 1 AFTER INTAKING PO ZOFRAN. WILL CONTACT PHYSICIAN FOR FURTHER ORDERS.
--- NOTE | 2017-04-13 15:31 | NUR ---
NO ACUTE DISTRESS NOTED. PT RESTING IN BED. RESPIRATIONS AT STEADY AND UNLABORED RATE. AWAKENS WHEN STAFF STATES PT NAME. WILL CONTINUE PLAN OF CARE.
--- NOTE | 2017-04-13 16:58 | NUR ---
PT DECLINED LUNCH AND SUPPER TRAYS STATING SHE FELT TOO NAUSEATED TO EAT AND WANTED TO POSSIBLY TRY AGAIN LATER AND WOULD NOTIFY STAFF WHEN SHE WISHED TO EAT. MEHRANN TITO ADMIN. WILL CONTINUE PLAN OF CARE.
--- NOTE | 2017-04-13 18:13 | NUR ---
UP IN BED AWAKE WATCHING TV AT THIS TIME. DENIES ANY NEEDS. NO ACUTE DISTRESS NOTED. WILL CONTINUE PLAN OF CARE.
--- NOTE | 2017-04-13 19:30 | NUR ---
REPORT RECIVED, SHIFT ASSESSMENT COMPLETE, PT IS ALERT AND ORIENTED, ON RA WITH 97% O2 SAT. LUNGS CLEAR IN B/L UPPER LOBES, DIMINISHED IN B/L LOWER LOBES, S1S2, CM-NSR, PATENT LEFT SC CVL S/L, INCISIONS TO ABDOMEN ARE OPEN TO AIR, WONG INTACT, NO REDNESS OR SWELLING NOTED, PATENT F/C WITH YELLOW UOP, ALL PPP, VSS, CALL LIGHT IN REACH
--- NOTE | 2017-04-13 21:00 | NUR ---
NO VISITORS AT THIS TIME, RESTING COMFORTABLY, WILL CON'T TO MONITOR
--- NOTE | 2017-04-13 22:56 | NUR ---
PT RESTING COMFORTABLY AT THIS TIME, VSS, CALL LIGHT IN REACH
[2017-04-14] VITALS (7 sets, daily range): BP systolic 106–132; BP diastolic 53–85
--- NOTE | 2017-04-14 01:07 | NUR ---
NO NEEDS NOTED AT THIS TIME, WILL CON 'T TO MONITOR
--- NOTE | 2017-04-14 03:00 | NUR ---
NO NEEDS NOTED AT THIS TIME, WILL CON'T TO MONITOR
--- NOTE | 2017-04-14 07:00 | NUR ---
REC'D REPORT AND RESUMED CARE, AAO, VSS, ASSESSMENT COMPLETED PER FLOWSHEET, C/O PAIN 04/29, DEFERS MEDS TIL POST BREAKFAST, SELF REPOSITIONS, CALL LIGHT AND BSC IN USE, NO OTHER NEEDS AT THIS TIME
--- NOTE | 2017-04-14 08:00 | NUR ---
BREAKFAST TRAY TO BEDSIDE, INDEPENDENT WITH SET UP AND EATING
--- NOTE | 2017-04-14 08:45 | NUR ---
AM MEDS GIVEN AND DEMEROL 25 MG TAB FOR PAIN 04/29, 25 % OF MEAL EATEN, NO OTHER NEEDS AT THIS TIME
--- NOTE | 2017-04-14 09:15 | NUR ---
SLEEPING WITH NO SIGNS OF DISTRESS, AROUSABLE TO VERBAL STIMULI, VSS, DENIES PAIN AT THIS TIME
--- NOTE | 2017-04-14 11:00 | NUR ---
RESTING WITH NO SIGNS OF DISTRESS, AROUSABLE TO VERBAL STIMULI, VSS, DENIES PAIN AT THIS TIME, CALL LIGHT IN REACH, NO NEEDS AT THIS TIME
--- NOTE | 2017-04-14 12:10 | NUR ---
LUNCH TRAY TO BEDSIDE, INDEPENDENT WITH SET UP AND EATING
--- NOTE | 2017-04-14 14:00 | NUR ---
REPORT CALLED TO ELEONORA FOR TRANSFER TO 2230, PC TO EMMETT VALERA, RE: NEW ROOM ASSIGNMENT, 1410 TRANSFERED TO 2239 VIA REUBEN BARCLAY,
--- NOTE | 2017-04-14 20:04 | NUR ---
PATIENT RESTING IN BED AND DENIES NEEDS AT THIS TIME. NO SIGNS OF DISTRESS. BED IN LOWEST POSITION AND CALL LIGHT WITHIN REACH. ENCOURAGED THE PATIENT TO CALL IF SHE HAS NEEDS.
[2017-04-15] VITALS: BP 123/85
[2017-04-15 04:00] VITALS: BP 120/70
--- NOTE | 2017-04-15 08:00 | NUR ---
LYING IN BED, HOPEFUL FOR DISCHARGE, DENIES NEEDS, BE DLOWEST POSITION, ASSESSMENT COMPLETE, WILL CONTINUE TO MONITOR
[2017-04-15 08:20] VITALS: BP 126/69
[2017-04-15 11:53] VITALS: BP 139/69
--- NOTE | 2017-04-15 14:33 | NUR ---
FAMILY AT BEDSIDE. CALL LIGHT IN REACH, RESPIRATIONS EVEN AND NON LABORED. DENIES NEEDS AT THIS TIME. WILL CONTINUE WITH PLAN OF CARE.
[2017-04-15 15:56] VITALS: BP 130/67
[2017-04-15] MEDS ORDERED: MEPERIDINE HCL50 MG PO (20:18)
[2017-04-15] MEDS ORDERED: COLACE50 MG/5 ML PO (20:18)
== END 2017-04-15 22:15 | disposition home or self-care (01) | DRG 657 ==
LOC: D.ICU 05:06 → D.SDCHOLD 05:06 → D.ICU 15:33 → D.MS 04-14 14:08
PROVIDERS: Anesthesiology; Surgery; ADMIT Urology
PROC: 0TT00ZZ Resection of Right Kidney, Open Approach (ICD-10-PCS; principal; 2017-04-10 10:00)
PROC: 0TT60ZZ Resection of Right Ureter, Open Approach (ICD-10-PCS; 2017-04-10 10:00)
PROC: 07BD0ZZ Excision of Aortic Lymphatic, Open Approach (ICD-10-PCS; 2017-04-10 10:00)
DX: C65.1 Malignant neoplasm of right renal pelvis (principal); N13.30 Unspecified hydronephrosis; R44.3 Hallucinations, unspecified; C77.2 Secondary and unspecified malignant neoplasm of intra-abdominal lymph nodes; N11.9 Chronic tubulo-interstitial nephritis, unspecified; J43.9 Emphysema, unspecified; F17.200 Nicotine dependence, unspecified, uncomplicated; R16.0 Hepatomegaly, not elsewhere classified; T40.4X5A Adverse effect of other synthetic narcotics, initial encounter; Y92.230 Patient room in hospital as the place of occurrence of the external cause

== ENCOUNTER → 2017-04-26 08:50 | Outpatient (CLI) | payer MEDICAID ==
[2017-04-11 09:22] VITALS: BMI 22.0
[~2017-04-26 08:50] MED LIST changes: +COLACE50 MG/5 ML PO
== END | disposition home or self-care (01) ==
LOC: D.RAD 08:50
DX: Z02.71 Encounter for disability determination (principal)

== ENCOUNTER 2017-05-16 13:00 | Outpatient (CLI) | payer MEDICAID ==
[2017-04-11 09:22] VITALS: BMI 22.0
[2017-05-16 10:49] LABS: CREATININE - SERUM 1.1 mg/dL (0.6-1.3)
== END 2017-05-16 23:59 | disposition home or self-care (01) ==
LOC: D.CT 13:00
PROVIDERS: Internal Medicine Hematology & Oncology
DX: C65.1 Malignant neoplasm of right renal pelvis (principal); R91.8 Other nonspecific abnormal finding of lung field; J43.9 Emphysema, unspecified

== ENCOUNTER 2017-05-19 18:38 | Inpatient (IN) | payer MEDICAID ==
[~2017-05-19] VITALS: Ht 172.7 cm; Wt 65.8 kg
[2017-05-19 19:32] LABS: BASOPHILS 0.3 % (0-2); EOSINOPHILS 2.9 % (0-7); HEMATOCRIT 34.8 % (36.0-48.0); HEMOGLOBIN 11.8 g/dL (12-16); IMMATURE GRANULOCYTES 0.3 % (0-5); LYMPHOCYTES 25.4 % (15-50); MCH 28.9 pg (26.0-34.0); MCHC 33.9 g/dL (31.0-37.0); MCV 85.3 fL (80.0-100.0); MEAN PLATELET VOLUME 10.3 fL (7.4-10.4); MONOCYTES 11.7 % (2-11); NEUTROPHILS 59.4 % (40-80); RBC 4.08 10x6/uL (4.00-5.40); RDW 15.3 % (11.5-14.5); WBC 8.7 10x3/uL (4.8-10.8)
[2017-05-19 19:40] LABS: ANION GAP 13.9 mmol/L (8-16); CALCIUM 8.1 mg/dL (8.5-10.1); CARBON DIOXIDE 23.2 mmol/L (21.0-32.0); CREATININE - SERUM 1.6 mg/dL (0.6-1.3); POTASSIUM - SERUM 3.1 mmol/L (3.5-5.1)
[2017-05-19 19:43] LABS: PLATELET COUNT 293 10x3/uL (130-400)
[2017-05-20] VITALS (7 sets, daily range): BP systolic 91–140; BP diastolic 52–67; Ht 172.7 cm; Wt 65.8 kg
[2017-05-20 12:58] LABS: BASOPHILS 0 % (0-2); EOSINOPHILS 0.1 % (0-7); HEMATOCRIT 33.1 % (36.0-48.0); IMMATURE GRANULOCYTES 0.2 % (0-5); LYMPHOCYTES 11.4 % (15-50); MCH 28.8 pg (26.0-34.0); MCHC 33.2 g/dL (31.0-37.0); MCV 86.6 fL (80.0-100.0); MEAN PLATELET VOLUME 10.4 fL (7.4-10.4); MONOCYTES 9.3 % (2-11); PLATELET COUNT 305 10x3/uL (130-400); RBC 3.82 10x6/uL (4.00-5.40); RDW 15.6 % (11.5-14.5)
[2017-05-20 13:00] LABS: WBC 11.3 10x3/uL (4.8-10.8)
[2017-05-20 13:05] LABS: APTT 23.5 SECONDS (22.8-39.4); INR 1.28 (0.85-1.17); PROTIME 15.9 SECONDS (11.6-15.0)
[2017-05-20] MEDS ORDERED: LEVAQUIN750 MG PO (16:46)
[2017-05-20 17:36] LABS: PROTEIN - BODY FLUID 4.2 G/DL
[2017-05-20 18:18] LABS: LYMPH - BF 19 %; MACROPHAGES BF 15 %; MESOTHELIALS BF 65 %; NEUT - BF 1 %
[2017-05-21] VITALS (9 sets, daily range): BP systolic 95–119; BP diastolic 47–68
[2017-05-22 09:28] VITALS: BP 102/67
[2017-05-22 11:02] LABS: BASOPHILS 0.4 % (0-2); EOSINOPHILS 4.8 % (0-7); HEMATOCRIT 36.3 % (36.0-48.0); IMMATURE GRANULOCYTES 0.4 % (0-5); MCH 28.5 pg (26.0-34.0); MCHC 33.1 g/dL (31.0-37.0); MCV 86.2 fL (80.0-100.0); MEAN PLATELET VOLUME 10.6 fL (7.4-10.4); MONOCYTES 9.4 % (2-11); PLATELET COUNT 285 10x3/uL (130-400); RBC 4.21 10x6/uL (4.00-5.40); RDW 15.5 % (11.5-14.5); WBC 5.6 10x3/uL (4.8-10.8)
[2017-05-22 11:29] LABS: ALKALINE PHOSPHATASE 220 U/L (46-116); ALT (SGPT) 70 U/L (10-68); CALC OSMOLALITY 257 mosm/kg (275-300); CARBON DIOXIDE 26.8 mmol/L (21.0-32.0); CHLORIDE - SERUM 95 mmol/L (98-107); CREATININE - SERUM 0.8 mg/dL (0.6-1.3); GLUCOSE 109 mg/dL (74-106); POTASSIUM - SERUM 3.3 mmol/L (3.5-5.1); SODIUM 129 mmol/L (136-145); UREA NITROGEN 8 mg/dL (7-18); eGFR NON AFRICAN AMERICAN 78 mL/min (90-120)
[2017-05-22 12:16] VITALS: BP 136/70
[2017-05-22 16:01] VITALS: BP 113/57
[2017-05-22 19:00] VITALS: BP 111/70
[2017-05-23 04:00] VITALS: BP 108/67
[2017-05-23 07:17] LABS: BASOPHILS 0 % (0-2); HEMOGLOBIN 11.4 g/dL (12-16); IMMATURE GRANULOCYTES 0.4 % (0-5); LYMPHOCYTES 21.8 % (15-50); MCH 28.4 pg (26.0-34.0); MCHC 33.5 g/dL (31.0-37.0); MCV 84.8 fL (80.0-100.0); MEAN PLATELET VOLUME 10.5 fL (7.4-10.4); MONOCYTES 9.4 % (2-11); NEUTROPHILS 64.4 % (40-80); PLATELET COUNT 235 10x3/uL (130-400); RBC 4.01 10x6/uL (4.00-5.40); RDW 15.3 % (11.5-14.5); WBC 4.8 10x3/uL (4.8-10.8)
[2017-05-23 07:45] LABS: ALBUMIN 1.8 g/dL (3.4-5.0); ALKALINE PHOSPHATASE 213 U/L (46-116); ALT (SGPT) 66 U/L (10-68); BILIRUBIN - TOTAL 1.58 mg/dL (0.2-1.3); CALC OSMOLALITY 254 mosm/kg (275-300); CALCIUM 7.9 mg/dL (8.5-10.1); CARBON DIOXIDE 26.4 mmol/L (21.0-32.0); CHLORIDE - SERUM 94 mmol/L (98-107); CREATININE - SERUM 0.8 mg/dL (0.6-1.3); GLUCOSE 93 mg/dL (74-106); MAGNESIUM - SERUM 1.2 mg/dL (1.8-2.4); PHOSPHOROUS 3.6 mg/dL (2.5-4.9); POTASSIUM - SERUM 3.3 mmol/L (3.5-5.1); PROTEIN - SERUM 5.8 g/dL (6.4-8.2); SODIUM 128 mmol/L (136-145); UREA NITROGEN 8 mg/dL (7-18); eGFR NON AFRICAN AMERICAN 78 mL/min (90-120)
[2017-05-23 08:54] VITALS: BP 118/62
[2017-05-23 17:07] LABS: ACID FAST SMEAR Negative (()); AFB SPECIMEN PROCESSING Concentration (())
[2017-05-23 19:00] VITALS: BP 111/66
[2017-05-24] VITALS: BP 102/63
[2017-05-24 04:00] VITALS: BP 105/57
[2017-05-24 05:16] LABS: BASOPHILS 0.2 % (0-2); EOSINOPHILS 4.5 % (0-7); HEMATOCRIT 33.4 % (36.0-48.0); HEMOGLOBIN 11.2 g/dL (12-16); IMMATURE GRANULOCYTES 0.7 % (0-5); LYMPHOCYTES 23.8 % (15-50); MCH 28.1 pg (26.0-34.0); MCHC 33.5 g/dL (31.0-37.0); MCV 83.9 fL (80.0-100.0); MEAN PLATELET VOLUME 10.5 fL (7.4-10.4); MONOCYTES 14.8 % (2-11); PLATELET COUNT 263 10x3/uL (130-400); RBC 3.98 10x6/uL (4.00-5.40); RDW 15.1 % (11.5-14.5); WBC 4.5 10x3/uL (4.8-10.8)
[2017-05-24 05:39] LABS: ALBUMIN 1.8 g/dL (3.4-5.0); ALKALINE PHOSPHATASE 227 U/L (46-116); ALT (SGPT) 66 U/L (10-68); CALC OSMOLALITY 254 mosm/kg (275-300); CALCIUM 7.9 mg/dL (8.5-10.1); CARBON DIOXIDE 26.3 mmol/L (21.0-32.0); CHLORIDE - SERUM 94 mmol/L (98-107); CREATININE - SERUM 0.8 mg/dL (0.6-1.3); GLUCOSE 95 mg/dL (74-106); MAGNESIUM - SERUM 1.3 mg/dL (1.8-2.4); POTASSIUM - SERUM 3.5 mmol/L (3.5-5.1); PROTEIN - SERUM 5.8 g/dL (6.4-8.2); SODIUM 128 mmol/L (136-145); UREA NITROGEN 8 mg/dL (7-18); eGFR NON AFRICAN AMERICAN 78 mL/min (90-120)
[2017-05-24 09:00] VITALS: BP 110/63
[2017-05-24 12:31] VITALS: BP 100/53
[2017-05-24 16:11] LABS: FUNGUS STAIN Final report (())
[2017-05-24 17:11] VITALS: BP 102/66
[2017-05-24 20:00] VITALS: BP 115/64
[2017-05-25 04:00] VITALS: BP 115/63
[2017-05-25 05:33] LABS: BASOPHILS 0.2 % (0-2); EOSINOPHILS 3.7 % (0-7); HEMATOCRIT 32.4 % (36.0-48.0); IMMATURE GRANULOCYTES 0.5 % (0-5); LYMPHOCYTES 24.8 % (15-50); MCH 28.6 pg (26.0-34.0); MCV 84.2 fL (80.0-100.0); MEAN PLATELET VOLUME 10.3 fL (7.4-10.4); MONOCYTES 16.2 % (2-11); NEUTROPHILS 54.6 % (40-80); PLATELET COUNT 240 10x3/uL (130-400); RBC 3.85 10x6/uL (4.00-5.40); RDW 15.1 % (11.5-14.5); WBC 4.3 10x3/uL (4.8-10.8)
[2017-05-25 06:00] LABS: ALBUMIN 1.7 g/dL (3.4-5.0); ALKALINE PHOSPHATASE 238 U/L (46-116); ALT (SGPT) 68 U/L (10-68); CALC OSMOLALITY 255 mosm/kg (275-300); CALCIUM 7.5 mg/dL (8.5-10.1); CARBON DIOXIDE 25.5 mmol/L (21.0-32.0); CHLORIDE - SERUM 94 mmol/L (98-107); CREATININE - SERUM 0.8 mg/dL (0.6-1.3); GLUCOSE 113 mg/dL (74-106); POTASSIUM - SERUM 3.2 mmol/L (3.5-5.1); PROTEIN - SERUM 5.5 g/dL (6.4-8.2); SODIUM 128 mmol/L (136-145); UREA NITROGEN 6 mg/dL (7-18); eGFR NON AFRICAN AMERICAN 78 mL/min (90-120)
[2017-05-25 09:27] VITALS: BP 108/62
[2017-05-25] MEDS ORDERED: MUCINEX DM ER1 EAC1 PO (13:14)
[2017-05-25] MEDS ORDERED: IPRAT-ALBUT 0.5-3 ML INH (13:14)
[2017-05-25] MEDS ORDERED: LEVAQUIN750 MG PO (13:14)
[2017-05-25] MEDS ORDERED: PULMICORT0.5 MG/21 UPD (13:14)
[2017-05-25 16:40] VITALS: BP 89/50
[2017-05-25 20:00] VITALS: BP 94/49
[2017-05-26] VITALS: BP 88/55
[2017-05-26 04:00] VITALS: BP 102/61
[2017-05-26 05:59] LABS: BASOPHILS 0.2 % (0-2); EOSINOPHILS 4.6 % (0-7); HEMATOCRIT 31.8 % (36.0-48.0); HEMOGLOBIN 10.7 g/dL (12-16); IMMATURE GRANULOCYTES 0.9 % (0-5); LYMPHOCYTES 25.1 % (15-50); MCH 28.3 pg (26.0-34.0); MCHC 33.6 g/dL (31.0-37.0); MCV 84.1 fL (80.0-100.0); MEAN PLATELET VOLUME 10.3 fL (7.4-10.4); MONOCYTES 17.1 % (2-11); NEUTROPHILS 52.1 % (40-80); PLATELET COUNT 228 10x3/uL (130-400); RBC 3.78 10x6/uL (4.00-5.40); RDW 15.5 % (11.5-14.5); WBC 5.4 10x3/uL (4.8-10.8)
[2017-05-26 06:20] LABS: ALBUMIN 1.7 g/dL (3.4-5.0); ALKALINE PHOSPHATASE 236 U/L (46-116); ALT (SGPT) 70 U/L (10-68); BILIRUBIN - TOTAL 1.43 mg/dL (0.2-1.3); CALC OSMOLALITY 252 mosm/kg (275-300); CALCIUM 7.6 mg/dL (8.5-10.1); CHLORIDE - SERUM 94 mmol/L (98-107); CREATININE - SERUM 0.8 mg/dL (0.6-1.3); GLUCOSE 92 mg/dL (74-106); POTASSIUM - SERUM 3.6 mmol/L (3.5-5.1); PROTEIN - SERUM 5.5 g/dL (6.4-8.2); SODIUM 127 mmol/L (136-145); eGFR NON AFRICAN AMERICAN 78 mL/min (90-120)
[2017-05-26 06:21] LABS: UREA NITROGEN 8 mg/dL (7-18)
[2017-05-26 08:44] VITALS: BP 98/66
[2017-05-26 12:40] VITALS: BP 113/65
[2017-05-26 18:03] LABS: CHOLESTEROL - BODY FLUID 44 mg/dL; TRIGLYCERIDE - BODY FLUID 10 mg/dL
[2017-05-26 19:00] VITALS: BP 93/52
[2017-05-27 00:14] VITALS: BP 105/61
[2017-05-27 04:00] VITALS: BP 117/70
[2017-05-27 06:11] LABS: BASOPHILS 0.4 % (0-2); EOSINOPHILS 1.4 % (0-7); HEMATOCRIT 30.8 % (36.0-48.0); HEMOGLOBIN 10.3 g/dL (12-16); IMMATURE GRANULOCYTES 1.1 % (0-5); LYMPHOCYTES 20.2 % (15-50); MCH 28.3 pg (26.0-34.0); MCHC 33.4 g/dL (31.0-37.0); MCV 84.6 fL (80.0-100.0); MEAN PLATELET VOLUME 10.7 fL (7.4-10.4); MONOCYTES 23.4 % (2-11); NEUTROPHILS 53.5 % (40-80); PLATELET COUNT 224 10x3/uL (130-400); RBC 3.64 10x6/uL (4.00-5.40); RDW 15.9 % (11.5-14.5); WBC 5.6 10x3/uL (4.8-10.8)
[2017-05-27 06:35] LABS: ALBUMIN 1.6 g/dL (3.4-5.0); ANION GAP 11.4 mmol/L (8-16); CALCIUM 7.4 mg/dL (8.5-10.1); CARBON DIOXIDE 23.6 mmol/L (21.0-32.0); CREATININE - SERUM 0.9 mg/dL (0.6-1.3); PROTEIN - SERUM 5.3 g/dL (6.4-8.2)
[2017-05-27 08:18] VITALS: BP 103/70
[2017-05-27] MEDS ORDERED: EMLA CREAM 30 G30 G1 TOPICAL (11:02)
[2017-05-27] MEDS ORDERED: ZOFRAN4 MG PO (11:03)
[2017-05-27] MEDS ORDERED: PHENERGAN25 M1 PO (11:04)
[2017-05-27 12:24] VITALS: BP 98/58
[2017-05-29 11:10] LABS: FUNGUS MYCOLOGY CULTURE Preliminary report (())
== END 2017-05-27 15:40 | disposition home health service (06) | DRG 199 ==
LOC: D.ER 18:38 → D.MS 23:10
PROVIDERS: Emergency Medicine; Internal Medicine Pulmonary Disease; ADMIT Family Medicine
PROC: 0W993ZZ Drainage of Right Pleural Cavity, Percutaneous Approach (ICD-10-PCS; principal; 2017-05-20)
PROC: 0W9930Z Drainage of Right Pleural Cavity with Drainage Device, Percutaneous Approach (ICD-10-PCS; principal; 2017-05-20)
PROC: 0W9930Z Drainage of Right Pleural Cavity with Drainage Device, Percutaneous Approach (ICD-10-PCS; 2017-05-21)
PROC: 05H533Z Insertion of Infusion Device into Right Subclavian Vein, Percutaneous Approach (ICD-10-PCS; 2017-05-26)
PROC: B5161ZA Fluoroscopy of Right Subclavian Vein using Low Osmolar Contrast, Guidance (ICD-10-PCS; 2017-05-26)
PROC: 0JH63XZ Insertion of Tunneled Vascular Access Device into Chest Subcutaneous Tissue and Fascia, Percutaneous Approach (ICD-10-PCS; 2017-05-26)
PROC: 0WH933Z Insertion of Infusion Device into Right Pleural Cavity, Percutaneous Approach (ICD-10-PCS; 2017-05-26)
DX: J95.811 Postprocedural pneumothorax (principal); J18.9 Pneumonia, unspecified organism; J44.1 Chronic obstructive pulmonary disease with (acute) exacerbation; C64.9 Malignant neoplasm of unspecified kidney, except renal pelvis; E87.1 Hypo-osmolality and hyponatremia; F17.203 Nicotine dependence unspecified, with withdrawal; J44.0 Chronic obstructive pulmonary disease with (acute) lower respiratory infection; J91.0 Malignant pleural effusion; J98.11 Atelectasis; J20.9 Acute bronchitis, unspecified; I10 Essential (primary) hypertension; K21.9 Gastro-esophageal reflux disease without esophagitis; E87.6 Hypokalemia; E88.09 Other disorders of plasma-protein metabolism, not elsewhere classified

== ENCOUNTER 2017-06-22 14:51 | Inpatient (IN) | payer MEDICAID ==
[~2017-06-22] VITALS: Ht 172.7 cm; Wt 65.6 kg
--- NOTE | ~2017-06-22 | CN ---
PATIENT NAME:MAGDALENA SINGER MEDICAL RECORD: [id number] : 58 LOCATION:[id number] ADMIT DATE: 06/23/17 ACCOUNT: [id number] CONSULTING PHYSICIAN: LON BENZ MD REFERRING PHYSICIAN: AMANDA IBARRA MD DATE OF CONSULTATION: 07/02/2017 CONSULT REQUESTING PHYSICIAN: Amanda Ibarra MD. REASON FOR CONSULTATION: Qwnot-wv-kusizme hypoxic respiratory failure, pulmonary edema and pneumonia. HISTORY OF PRESENT ILLNESS: Ms. Singer is a 57-year-old female who has stage IV bladder carcinoma. She is on chemotherapy. The patient was admitted with worsening shortness of breath. She has a right-sided thoracentesis on Monday. Now, her breathing is getting worse. She has cough with very little sputum production. Denies any fever or chills, no night sweats. REVIEW OF SYSTEMS: As in history of present illness. PAST MEDICAL HISTORY: 1. COPD. 2. Stage IV CA of the bladder. 3. History of pneumonia. 4. Continued smoking, nicotine dependent. 5. Depression. 6. Anxiety. PAST SURGICAL HISTORY: 1. Cholecystectomy. 2. Hysterectomy. 3. She had multiple adhesions removed from the right kidney. ALLERGIES: SHE IS ALLERGIC TO ALKYLAMINE, BUSPAR, FIORINAL, CODEINE, HYDROCHLOROTHIAZIDE, HYDROCODONE, HYDROMORPHONE, MORPHINE, PREDNISONE, TRAMADOL AND VENLAFAXINE. PRESENT MEDICATIONS: On [employer] is reviewed. PERSONAL AND SOCIAL HISTORY: The patient still continues to smoke almost a pack a day. She is a nondrinker. FAMILY HISTORY: Noncontributory. PHYSICAL EXAMINATION: GENERAL: Now, the patient is sitting in bed. She is on oxymizer. VITAL SIGNS: The blood pressure is 101/91, pulse is 99, respirations 29, temperature is 96.6 and SpO2 is 96% on 10-L oxymizer. HEENT: Conjunctivae are pink, sclerae nonicteric. NECK: Supple. There is elevated JVD. CHEST: There are bilateral crackles, dullness on percussion at the bases. HEART: Rate and rhythm regular with grade II/ systolic murmur. ABDOMEN: Soft, bowel sounds present. Distended. RECTAL: Deferred. CONSULT REPORT [id number] SINGER,MAGDALENA PRASHANT EXTREMITIES: She has 3+ pedal edema. SKIN: Warm. There is ulceration on the anterior chest wall. CENTRAL NERVOUS SYSTEM: The patient is awake and alert. There is no obvious cranial nerve abnormality. The gait was not tested. IMAGING DATA: Chest radiograph: There are bilateral infiltrates, right more than left pleural effusion. LABORATORY DATA: CBC: The WBC is 41.5, hemoglobin 9.9, hematocrit 27.9 and the platelet count 104. Chemistry: Sodium is 129, potassium 3.2, chloride 95, bicarb is 22.6, BUN is 22 and creatinine is 1.9. AST is 167, ALT 152, alkaline phosphatase is 389. Troponin is 0.139. The proBNP is 134,329. IMPRESSION: 1. Dbawd-zz-cbanegb hypoxic respiratory failure. 2. Metabolic acidosis with over compensated respiratory alkalosis. 3. Septicemia. 4. Acute exacerbation of chronic obstructive pulmonary disease. 5. Pneumonia, most likely HAP. 6. Bilateral pleural effusion, right more than the left. 7. Cardiomyopathy with ejection fraction of 20%, systolic dysfunction with this elevated proBNP 134,000. 8. Stage IV cancer of the bladder. 9. Acute renal failure. 10. Elevated cardiac enzyme. 11. Elevated liver enzymes. RECOMMENDATIONS: 1. Albuterol and ipratropium nebulizer. Add Brovana and budesonide nebulizer. Start methylprednisolone IV. Continue Levaquin. I will add cefepime and vancomycin. 2. Start on bicarb drip 50 cc an hour. 3. Diuresis per cardiology. 4. Dobutamine renal dose for cardiomyopathy. 5. Followup labs and chest radiograph. 6. Check the lactic acid level. There is multisystem failure. The prognosis is guarded. Dr. Ibarra, thank you for involving me in the care of Ms. Singer. TRANSINT:[id number] Voice Confirmation ID: [id number] DOCUMENT ID: [id number] LON BENZ MD CC: AMANDA IBARRA MD [id number] DICTATION DATE: 07/02/171451 KEY CUTTER: 07/02/17 1837 ADM IN [facility] [address] [place] [address]
[~2017-06-22 14:51] MED LIST changes: +EMLA CREAM 30 G30 G1 TOPICAL; +IPRAT-ALBUT 0.5-3 ML INH; +LEVAQUIN750 MG PO; +MUCINEX DM ER1 EAC1 PO; +PHENERGAN25 M1 PO; +PULMICORT0.5 MG/21 UPD; +ZOFRAN4 MG PO
[2017-06-22 16:00] LABS: BASOPHILS 0.7 % (0-2); EOSINOPHILS 0.2 % (0-7); HEMATOCRIT 28.2 % (36.0-48.0); HEMOGLOBIN 9.1 g/dL (12-16); IMMATURE GRANULOCYTES 4.4 % (0-5); LYMPHOCYTES 17.5 % (15-50); MCHC 32.3 g/dL (31.0-37.0); MCV 89.8 fL (80.0-100.0); MEAN PLATELET VOLUME 9.8 fL (7.4-10.4); MONOCYTES 14.9 % (2-11); NEUTROPHILS 62.3 % (40-80); PLATELET COUNT 254 10x3/uL (130-400); RBC 3.14 10x6/uL (4.00-5.40); RDW 21.3 % (11.5-14.5); WBC 4.6 10x3/uL (4.8-10.8)
[2017-06-22 16:04] LABS: ALBUMIN 1.9 g/dL (3.4-5.0); ALKALINE PHOSPHATASE 426 U/L (46-116); ALT (SGPT) 85 U/L (10-68); BILIRUBIN - TOTAL 3.06 mg/dL (0.2-1.3); CALC OSMOLALITY 265 mosm/kg (275-300); CALCIUM 7.5 mg/dL (8.5-10.1); CARBON DIOXIDE 27.1 mmol/L (21.0-32.0); CHLORIDE - SERUM 98 mmol/L (98-107); GLUCOSE 141 mg/dL (74-106); PROTEIN - SERUM 6.1 g/dL (6.4-8.2); SODIUM 133 mmol/L (136-145); UREA NITROGEN 6 mg/dL (7-18); eGFR NON AFRICAN AMERICAN 60 mL/min (90-120)
[2017-06-22 16:07] LABS: TROPONIN-I < 0.017 ng/mL (0.000-0.060)
[2017-06-22 19:50] VITALS: BP 94/52
[2017-06-22 23:02] VITALS: BP 94/52; BMI 21.4
[2017-06-23 00:05] VITALS: BP 91/54
--- NOTE | 2017-06-23 03:50 | NUR ---
1930) REC'D FROM ER VIA W/C.ASSISTED TO BED AND INTRODUCRD TO RMCINDAG.TO RIGHT LATERAL CHEST.DRY WITH CHEST TUBE IN PLACE. DENIES SOB AT PRESENT TIME.02 2L NC.MONITOR SHOWING NORM SINUS RHYTHM.WILL CONTINUE TO MONITOR FOR ANY CHGES IN STATUS AND FOLLOW CURRENT PLAN 9F CARE
[2017-06-23 04:00] VITALS: BP 84/51
[2017-06-23 05:40] LABS: BASOPHILS 0 % (0-2); EOSINOPHILS 0.3 % (0-7); HEMATOCRIT 22.8 % (36.0-48.0); HEMOGLOBIN 7.6 g/dL (12-16); MCH 29.3 pg (26.0-34.0); MCHC 33.3 g/dL (31.0-37.0); MEAN PLATELET VOLUME 9.8 fL (7.4-10.4); MONOCYTES 25.4 % (2-11); NEUTROPHILS 56.3 % (40-80); RBC 2.59 10x6/uL (4.00-5.40); RDW 21.9 % (11.5-14.5)
[2017-06-23 05:43] LABS: PLATELET COUNT 203 10x3/uL (130-400); WBC 3.4 10x3/uL (4.8-10.8)
[2017-06-23 06:02] LABS: ALBUMIN 1.6 g/dL (3.4-5.0); ALKALINE PHOSPHATASE 370 U/L (46-116); ALT (SGPT) 75 U/L (10-68); BILIRUBIN - TOTAL 2.67 mg/dL (0.2-1.3); CARBON DIOXIDE 27.3 mmol/L (21.0-32.0); CHLORIDE - SERUM 99 mmol/L (98-107); CREATININE - SERUM 0.8 mg/dL (0.6-1.3); GLUCOSE 113 mg/dL (74-106); PROTEIN - SERUM 5.2 g/dL (6.4-8.2); SODIUM 133 mmol/L (136-145); eGFR NON AFRICAN AMERICAN 78 mL/min (90-120)
[2017-06-23 06:04] LABS: CALC OSMOLALITY 265 mosm/kg (275-300); POTASSIUM - SERUM 3.5 mmol/L (3.5-5.1); UREA NITROGEN 9 mg/dL (7-18)
--- NOTE | 2017-06-23 07:30 | NUR ---
PT ASSESSMENT COMPLETE AWAKE AND ALERT ORIENTD X 3 LUNGS CLEAR BILATERALLY MOVES ALL EXTREMITIES WELL. RIGHT UPPER CHEST INFUSAPORT NOTED TO DRESSING INTACT WITH BIOPATCH IN PLACE. ACCESSED AND DRESSED LAST NIGHT PATENT TO IVF PER ORDER.
[2017-06-23 07:55] VITALS: BP 94/49
[2017-06-23] MEDS ORDERED: ESTRACE1 MG PO (10:03)
--- NOTE | 2017-06-23 10:41 | NUR ---
PT IN CT AT THIS TIME FOR SCANS PER ORDER DR FRENCH NEW ORDER FOR TRANSFUSE 2 UNITS PRBCS TODAY WILL TRANSFUSE WHEN AVAILABLE.
[2017-06-23 12:17] VITALS: BP 142/61
[2017-06-23 13:01] VITALS: Ht 172.7 cm; Wt 65.6 kg
--- NOTE | 2017-06-23 17:03 | NUR ---
PT AOX4 RESP EVEN AND NONLABORED PT HERE FOR THIS CHEST TUBE DRAINAGE FOR THIS VISIT IV TO LEFT SUBCLAVIAN PORT PATENT AND INTACT AT THIS TIME SRX2 BED AT LOWEST SETTING CALL LIGHT WITHIN REACH WILL CONTINUE TO MONITOR
[2017-06-23 20:00] VITALS: BP 111/61
--- NOTE | 2017-06-23 22:43 | NUR ---
rec'd.sitting up in bed watching tv. denies any compaints at present time.drsg. dry and intact to rt. side.will continue to monitor for any chges. and follow current plan of care.
--- NOTE | 2017-06-23 22:51 | NUR ---
RESTING QUIETLY IN BED, NO S&S OF ACUTE DISTRESS NOTED. BED LOW AND LOCKED, CALL LIGHT IN REACH. WILL CPOC.
[2017-06-24] VITALS (7 sets, daily range): BP systolic 94–123; BP diastolic 38–75
[2017-06-24 06:28] LABS: BASOPHILS 0.2 % (0-2); EOSINOPHILS 0.9 % (0-7); HEMATOCRIT 28.6 % (36.0-48.0); HEMOGLOBIN 9.6 g/dL (12-16); IMMATURE GRANULOCYTES 0.2 % (0-5); LYMPHOCYTES 18.4 % (15-50); MCH 29.3 pg (26.0-34.0); MCHC 33.6 g/dL (31.0-37.0); MCV 87.2 fL (80.0-100.0); MONOCYTES 7.3 % (2-11); PLATELET COUNT 152 10x3/uL (130-400); RBC 3.28 10x6/uL (4.00-5.40); RDW 20.5 % (11.5-14.5); WBC 5.7 10x3/uL (4.8-10.8)
[2017-06-24 06:49] LABS: ALBUMIN 1.6 g/dL (3.4-5.0); ALKALINE PHOSPHATASE 355 U/L (46-116); BILIRUBIN - TOTAL 3.64 mg/dL (0.2-1.3); CALC OSMOLALITY 267 mosm/kg (275-300); CARBON DIOXIDE 28.1 mmol/L (21.0-32.0); CHLORIDE - SERUM 102 mmol/L (98-107); CREATININE - SERUM 0.8 mg/dL (0.6-1.3); GLUCOSE 84 mg/dL (74-106); POTASSIUM - SERUM 3.5 mmol/L (3.5-5.1); PROTEIN - SERUM 5.2 g/dL (6.4-8.2); SODIUM 135 mmol/L (136-145); UREA NITROGEN 10 mg/dL (7-18); eGFR NON AFRICAN AMERICAN 78 mL/min (90-120)
[2017-06-24 06:50] LABS: ALT (SGPT) 120 U/L (10-68)
--- NOTE | 2017-06-24 07:30 | NUR ---
PATIENT RECEIVED ALERT IN MID BANUELOS POSITION. NO SIGNS OF DISTRESS NOTED. NO NEEDS VOICED. SIDE RAILS UP X2. BED IN LOW POSITION. CALL LIGHT IN REACH.
--- NOTE | 2017-06-24 08:05 | NUR ---
ALERT IN BED. NO SIGNS OF DISTRESS NOTED. SCHEDULED MEDICATION ADMINISTERED WELL PRN DEMEROL FOR PAIN 05/29. DENIES NEEDS. SIDE RAILS UP X2. BED IN LOW POSITION. CALL LIGHT IN REACH.
--- NOTE | 2017-06-24 10:05 | NUR ---
RIGHT CHEST PORT SALINE LOCKED. DENIES NEEDS. CALL LIGHT IN REACH.
--- NOTE | 2017-06-24 12:30 | NUR ---
ALERT IN BED EATING LUNCH. TOLERATING WELL. C/O PAIN 05/29. DEMEROL PER PRN ORDER. DENIES FURTHER NEEDS. SIDE RAILS UP X2. BED IN LOW POSITION. CALL LIGHT IN REACH.
--- NOTE | 2017-06-24 17:00 | NUR ---
DRESSING TO RIGHT INFUSAPORT COMING LOOSE. DRESSSING CHANGED PER PROTOCOL USING STERILE TECHNIQUE AND CENTRAL LINE DRESSING KIT. NO REDNESS OR INFLAMMATION NOTED TO SITE. WELL TOLERATED. SWAB CAPS IN PLACE.
--- NOTE | 2017-06-24 19:50 | NUR ---
PT RESTING IN BED WITH GUEST AT BEDSIDE AND DENIES NEEDS AT THIS TIME. BED IN LOWEST POSITION AND CALL LIGHT WITHIN REACH. ENCOURAGED THE PT TO CALL IF SHE HAS NEEDS.
[2017-06-25] VITALS: BP 108/58
[2017-06-25 06:51] LABS: BASOPHILS 0.3 % (0-2); EOSINOPHILS 2.7 % (0-7); HEMATOCRIT 26.8 % (36.0-48.0); IMMATURE GRANULOCYTES 0.3 % (0-5); LYMPHOCYTES 27.9 % (15-50); MCH 29.2 pg (26.0-34.0); MCHC 33.6 g/dL (31.0-37.0); MEAN PLATELET VOLUME 9.8 fL (7.4-10.4); MONOCYTES 4.4 % (2-11); NEUTROPHILS 64.4 % (40-80); RBC 3.08 10x6/uL (4.00-5.40); RDW 20.3 % (11.5-14.5)
[2017-06-25 06:57] LABS: PLATELET COUNT 104 10x3/uL (130-400)
[2017-06-25 06:58] LABS: ALKALINE PHOSPHATASE 323 U/L (46-116); ALT (SGPT) 150 U/L (10-68); CALCIUM 7.3 mg/dL (8.5-10.1); CARBON DIOXIDE 27.7 mmol/L (21.0-32.0); CHLORIDE - SERUM 98 mmol/L (98-107); CREATININE - SERUM 0.6 mg/dL (0.6-1.3); GLUCOSE 85 mg/dL (74-106); POTASSIUM - SERUM 3.2 mmol/L (3.5-5.1); PRE-ALBUMIN 8.8 mg/dL (18.0-35.7); PROTEIN - SERUM 5.4 g/dL (6.4-8.2); SODIUM 133 mmol/L (136-145); eGFR NON AFRICAN AMERICAN > 90 mL/min (90-120)
[2017-06-25 06:59] LABS: ALBUMIN 2.2 g/dL (3.4-5.0); CALC OSMOLALITY 262 mosm/kg (275-300); UREA NITROGEN 6 mg/dL (7-18)
--- NOTE | 2017-06-25 07:20 | NUR ---
PATIENT RECEIVED IN LOW BANUELOS POSITION RESTING QUIETLY. NO SIGNS OF DISTRESS NOTED. CALL LIGHT IN REACH. DENIES NEEDS. FAMILY PRESENT
[2017-06-25 07:52] VITALS: BP 108/50
--- NOTE | 2017-06-25 09:50 | NUR ---
ALERT IN BED. NO SIGNS OF DISTRESS NOTED. SCHEDULED MEDICATION ADMINISTERED. DENIES NEEDS. SIDE RAILS UP X2. BED IN LOW POSITION. CALL LIGHT IN REACH.
[2017-06-25 12:35] VITALS: BP 115/61
--- NOTE | 2017-06-25 13:56 | NUR ---
PATIENT RESTING QUIETLY IN BED. NO SIGNS OF DISTRESS NOTED. RIGHT CHEST PORT SALINE LOCKED. DEMEROL PER PRN ORDER. DENIES NEEDS. SIDE RAILS UP X2. BED IN LOW POSITIO. CALL LIGHT IN REACH.
--- NOTE | 2017-06-25 14:30 | NUR ---
PATIENT RESTING QUIETLY IN BED. NO SIGNS OF DISTRESS NOTED. FAMILY AT BEDSIDE. DENIES NEEDS. SIDE RAILS UP X2. BED IN LOW POSITION. CALL LIGHT IN REACH.
[2017-06-25 15:53] VITALS: BP 99/53
--- NOTE | 2017-06-25 17:55 | NUR ---
ALERT IN BED WATCHING TV. NO SIGNS OF DISTRESS NOTED. C/O PAIN 06/29. DEMEROL PER PRN ORDER. NO FURTHER NEEDS VOICED. SIDE RAILS UP X2. BED IN LOW POSITION. CALL LIGHT IN REACH.
--- NOTE | 2017-06-25 19:40 | NUR ---
PATIENT RESTING IN BED AND DENIES NEEDS AT THIS TIME. BED IN LOWEST POSITION AND CALL LIGHT WITHIN REACH. ENCOURAGED THE PT TO CALL IF SHE HAS NEEDS.
[2017-06-25 20:00] VITALS: BP 100/59
[2017-06-26 04:00] VITALS: BP 124/68
[2017-06-26 04:33] LABS: HEMATOCRIT 25.2 % (36.0-48.0); HEMOGLOBIN 8.5 g/dL (12-16); MCH 29.4 pg (26.0-34.0); MCHC 33.7 g/dL (31.0-37.0); MCV 87.2 fL (80.0-100.0); MEAN PLATELET VOLUME 10.1 fL (7.4-10.4); PLATELET COUNT 93 10x3/uL (130-400); RBC 2.89 10x6/uL (4.00-5.40); RDW 19.9 % (11.5-14.5); WBC 0.7 10x3/uL (4.8-10.8)
[2017-06-26 04:53] LABS: ALBUMIN 2.1 g/dL (3.4-5.0); ALKALINE PHOSPHATASE 283 U/L (46-116); ALT (SGPT) 152 U/L (10-68); BILIRUBIN - TOTAL 4.02 mg/dL (0.2-1.3); CALC OSMOLALITY 262 mosm/kg (275-300); CALCIUM 7.3 mg/dL (8.5-10.1); CARBON DIOXIDE 26.3 mmol/L (21.0-32.0); CHLORIDE - SERUM 97 mmol/L (98-107); CREATININE - SERUM 0.7 mg/dL (0.6-1.3); GLUCOSE 87 mg/dL (74-106); POTASSIUM - SERUM 3.2 mmol/L (3.5-5.1); PROTEIN - SERUM 5.3 g/dL (6.4-8.2); SODIUM 132 mmol/L (136-145); eGFR NON AFRICAN AMERICAN > 90 mL/min (90-120)
[2017-06-26 04:55] LABS: UREA NITROGEN 9 mg/dL (7-18)
[2017-06-26 05:18] LABS: LYMPHOCYTES 77 % (15-50); MONOCYTES 11 % (2-11); NEUTROPHILS 12 % (40-80); TARGET CELLS 1+
[2017-06-26 05:19] LABS: PLATELET ESTIMATE DECREASED; STOMATOCYTES 1+
--- NOTE | 2017-06-26 07:30 | NUR ---
PT ASSESSMENT COMPLETE AWAKE AND ALERT ORIENTED X 3 LUNGS WITH DIMINISHED SOUNDS TO RIGHT MIDDLE AND LOWER LOBE DRESSING ON PLACE WHERE PLUREX DRAIN WAS REMOVED YESTERDAY. PT WITH O2 AT 2LPM. ALL ADLS PER STAFF ASSIST. UP AD WANDA
--- NOTE | 2017-06-26 08:11 | NUR ---
Patient Name: MAGDALENA FREEMAN Admission Status: ER Accout number: [id number] Admission Date: 06-23-2017 : 1960 Admission Diagnosis: Attending: VERNELL Current LOS: 3 Anticipated DC Date: 06-27-2017 Planned Disposition: Home with Home Health Primary [facility] [place] Discharge Planning Comments: CM MET WITH PATIENT REGARDING D/C NEEDS AND PLANS. PATIENT STATED SHE LIVES WITH HER BOYFRIEND (RAÚL) AND HE WILL DRIVE HER HOME AT DISCHARGE. PATIENT STATED THERE ARE 3 STEPS W/RAILS TO ENTER HOME AND NO STAIRS INSIDE. PAIENT STATED SHE IS INDEPENDENT WITH HER CARE AND HAS A NEBULIZER, PORTABLE O2, AND OXYGEN AT HOME SUPPLIED BY [facility]. PATIENTS PCP IS DR. ORONA AND PHARMACY IS [facility]. [facility] PATIENT IS CURRENT WITH [facility]. CM WILL CONTINUE TO FOLLOW PATIENT WITH D/C NEEDS AND PLANS. [facility]- [phone] RAÚL VALERA (MAREFRIEND) [phone] Tone Artist Apprentice: Priscilla Lloyd Is the patient Alert and Oriented? Yes 0 * How many steps to enter\exit or inside your home? 3 W/RAILS 0 * PCP DR. ORONA 0 * Pharmacy [facility]. ON [facility] 0 * Preadmission Environment Home with Family 0 * ADLs Independent 0 * Equipment Nebulizer Oxygen 0 * Other Equipment PORTABLE O2 0 * List name and contact numbers for known caregivers / representatives who currently or will assist patient after discharge: JARRELL VALERA (MAREFRIEND) [phone] 0 * Community resources currently utilized Home Health 0 * Please name any agencies selected above. [facility] 0 * Additional services required to return to the preadmission environment? Yes 0 * Can the patient safely return to the preadmission environment? Yes 0 * Has this patient been hospitalized within the prior 30 days at any hospital? Yes 0 Grand Total: 0
[2017-06-26 08:23] VITALS: BP 118/66
--- NOTE | 2017-06-26 09:29 | NUR ---
ORDER PER DR FRENCH TO PLACE PT IN NUTRAPENIC ISOLATION BODY RECALL INSTRUCTOR AND STAFF NOTIFIED OF ORDER.
[2017-06-26 12:05] VITALS: BP 99/60
--- NOTE | 2017-06-26 13:10 | NUR ---
AWAKE AND ALERT. SITTING UP IN BED DRINKING A SODA. REPORTS DRAINAGE HAS SLOWED ALOT. DENIES NEEDS.
--- NOTE | 2017-06-26 13:13 | NUR ---
PT RESTING WELL IN BED NO DISTRESS NOTED
--- NOTE | 2017-06-26 14:39 | NUR ---
NUTRITION MONITORING & EVAL CHART REVIEWED, PT NOW IN NEUTROPENIC ISOLATION. 50% INTAKE REG DIET. WILL CONTINUE TO PROVIDE DIET, HONOR FOOD PREFERENCES. RD FOLLOWING
--- NOTE | 2017-06-26 17:37 | NUR ---
PT RESTING WELL IN BED REQUESTED AND RECIEVED ZOFRAN PER ORDER. REMAINS ON NUTRAPENIC PRECAUTIONS.
--- NOTE | 2017-06-26 19:15 | NUR ---
RECIEVED SHIFT REPORT. PT IS LYING IN BED. ALERT AND ORIENTED AND ABLE TO VERBALIZE NEEDS. IV IS PATENT AND FLUIDS ARE RUNNING PER ORDER. O2 @ 2 PER NASAL CANNULA. PT IS AMBULATORY BUT WAS INSTRUCTED TO CALL FOR ANY ASSISTANCE NEEDED. PT STATES PAIN IS 8/10. NO NEEDS ARE VERBALIZED AT THIS TIME. WILL CONTINUE TO MONITOR. SIDE RAILS ARE UP X 2. BED IS IN LOWEST POSITION. CALL LIGHT IS WITHIN REACH.
[2017-06-26 20:00] VITALS: BP 104/54
--- NOTE | 2017-06-26 21:13 | NUR ---
SHIFT ASSESSMENT COMPLETED. NIGHT MEDS GIVEN WITH NO PROBLEMS. PT C/O PAIN 06/29. ADMNISTERED PRESCRIBED PRN DEMEROL PER ORDER. NO FURTHER NEEDS AT THIS TIME. WILL MONITOR. SIDE RAILS X 2. BED LOW. CALL LIGHT IN REACH.
[2017-06-27 04:00] VITALS: BP 116/58
[2017-06-27 05:19] LABS: BASOPHILS 0.5 % (0-2); EOSINOPHILS 0.5 % (0-7); HEMATOCRIT 23.1 % (36.0-48.0); HEMOGLOBIN 7.9 g/dL (12-16); IMMATURE GRANULOCYTES 1.5 % (0-5); LYMPHOCYTES 21.1 % (15-50); MCH 29.8 pg (26.0-34.0); MCHC 34.2 g/dL (31.0-37.0); MCV 87.2 fL (80.0-100.0); MEAN PLATELET VOLUME 9.3 fL (7.4-10.4); NEUTROPHILS 74.4 % (40-80); RBC 2.65 10x6/uL (4.00-5.40); RDW 19.7 % (11.5-14.5)
[2017-06-27 05:26] LABS: PLATELET COUNT 61 10x3/uL (130-400)
[2017-06-27 05:48] LABS: ALBUMIN 2.6 g/dL (3.4-5.0); ALKALINE PHOSPHATASE 221 U/L (46-116); CALC OSMOLALITY 263 mosm/kg (275-300); CALCIUM 7.7 mg/dL (8.5-10.1); CARBON DIOXIDE 26.9 mmol/L (21.0-32.0); CHLORIDE - SERUM 97 mmol/L (98-107); CREATININE - SERUM 0.8 mg/dL (0.6-1.3); GLUCOSE 95 mg/dL (74-106); POTASSIUM - SERUM 3.3 mmol/L (3.5-5.1); PROTEIN - SERUM 5.2 g/dL (6.4-8.2); SODIUM 132 mmol/L (136-145); UREA NITROGEN 11 mg/dL (7-18); eGFR NON AFRICAN AMERICAN 78 mL/min (90-120)
[2017-06-27 05:54] LABS: ALT (SGPT) 103 U/L (10-68)
--- NOTE | 2017-06-27 07:30 | NUR ---
PT AWAKE AND ALERT ORINETED X 3 LUNGS WITH BILAT DIMINISHED BREATH SOUNDS IN BASES. ALL ADLS PER STAFF ASSIST HAS NOTED LEAKING OF ACITES FROM OLD PLUREX DRAIN SITE. BSA X 4 QUADS
[2017-06-27 09:05] VITALS: BP 103/56
[2017-06-27 13:22] VITALS: BP 109/60
--- NOTE | 2017-06-27 14:44 | NUR ---
UNIT 1 OF 2 UP AT THIS TIME PER GAS STATION SUPERVISOR. VITAL SIGNS WITH IN NORMAL LIMITS. WILL MONITOR.
--- NOTE | 2017-06-27 15:58 | NUR ---
PRBCS STILL INFUSING WITH NO REACTION NOTED. VITAL SIGNS STABLE
--- NOTE | 2017-06-27 17:52 | NUR ---
2ND OF 2 UNITS OF BLOOD UP AT THIS TIME PER CELL TENDER PT RECIEVED LASIX PER ORDER BETWEEN UNITS. WILL MONITOR
--- NOTE | 2017-06-27 19:20 | NUR ---
RECIEVED SHIFT REPORT. PT IS LYING IN BED. ALERT AND ORIENTED AND ABLE TO VERBALIZE NEEDS. IV IS PATENT AND BLOOD RUNNING AT THIS TIME. O2 @ 2 PER NASAL CANNULA. PT IS AMBULATORY BUT WAS INSTRUCTED TO CALL FOR ANY ASSISTANCE NEEDED. PT STATES PAIN IS 6/10. NO NEEDS ARE VERBALIZED AT THIS TIME. WILL CONTINUE TO MONITOR. SIDE RAILS ARE UP X 2. BED IS IN LOWEST POSITION. CALL LIGHT IS WITHIN REACH.
[2017-06-28] VITALS: BP 101/70
--- NOTE | 2017-06-28 00:06 | NUR ---
SHIFT ASSESSMENT COMPLETED. NIGHT MEDS GIVEN WITH NO PROBLEMS. NO NEEDS ARE VOICED. WILL MONITOR. SIDE RAILS X 2. BED LOW. CALL LIGHT IN REACH.
[2017-06-28 06:13] LABS: BASOPHILS 0.7 % (0-2); EOSINOPHILS 0.3 % (0-7); LYMPHOCYTES 24.2 % (15-50); MCH 29.3 pg (26.0-34.0); MCHC 34.3 g/dL (31.0-37.0); MCV 85.6 fL (80.0-100.0); MEAN PLATELET VOLUME 10.5 fL (7.4-10.4); NEUTROPHILS 65.8 % (40-80); RDW 18.4 % (11.5-14.5)
[2017-06-28 06:15] LABS: HEMATOCRIT 28.6 % (36.0-48.0); HEMOGLOBIN 9.8 g/dL (12-16); RBC 3.34 10x6/uL (4.00-5.40); WBC 2.9 10x3/uL (4.8-10.8)
[2017-06-28 06:16] LABS: PLATELET COUNT 40 10x3/uL (130-400)
[2017-06-28 06:27] LABS: ALBUMIN 2.5 g/dL (3.4-5.0); ANION GAP 11.2 mmol/L (8-16); BILIRUBIN - TOTAL 5.36 mg/dL (0.2-1.3); CALCIUM 7.7 mg/dL (8.5-10.1); CARBON DIOXIDE 26.8 mmol/L (21.0-32.0); PROTEIN - SERUM 5.3 g/dL (6.4-8.2)
[2017-06-28 06:32] LABS: CREATININE - SERUM 1.1 mg/dL (0.6-1.3)
--- NOTE | 2017-06-28 07:45 | NUR ---
PT AOX4 RESP EVEN AND NONLABORED PT DENIES NEEDS AT THIS TIME IV TO RIGHT SUBCLAVIAN INFUSIPORT PATENT AND INTACT AT THIS TIME SRX2 BED AT LOWEST SETTING CALL LIGHT WITHIN REACH WILL CONTINUE TO MONITOR
[2017-06-28 09:41] VITALS: BP 114/63
[2017-06-28 12:55] VITALS: BP 125/62
[2017-06-28 16:34] VITALS: BP 116/65
--- NOTE | 2017-06-28 19:20 | NUR ---
RECIEVED SHIFT REPORT. PT IS LYING IN BED. ALERT AND ORIENTED AND ABLE TO VERBALIZE NEEDS. IV IS PATENT AND SALINE LOC AT THIS TIME. O2 @ 2 PER NASAL CANNULA. PT IS AMBULATORY BUT WAS INSTRUCTED TO CALL FOR ANY ASSISTANCE NEEDED. PT STATES PAIN IS 6/10. NO NEEDS ARE VERBALIZED AT THIS TIME. WILL CONTINUE TO MONITOR. SIDE RAILS ARE UP X 2. BED IS IN LOWEST POSITION. CALL LIGHT IS WITHIN REACH.
[2017-06-28 20:00] VITALS: BP 118/69
--- NOTE | 2017-06-28 21:57 | NUR ---
SHIFT ASSESSMENT COMPLETED. NIGHT MEDS GIVEN WITH NO PROBLEMS. NO NEEDS ARE VOICED. WILL MONITOR. SIDE RAILS X 2. BED LOW. CALL LIGHT IN REACH.
[2017-06-29] VITALS (8 sets, daily range): BP systolic 96–115; BP diastolic 53–66
[2017-06-29 06:04] LABS: BASOPHILS 1.4 % (0-2); EOSINOPHILS 0 % (0-7); HEMATOCRIT 29.4 % (36.0-48.0); HEMOGLOBIN 10.2 g/dL (12-16); LYMPHOCYTES 29.7 % (15-50); MCH 29.9 pg (26.0-34.0); MCHC 34.7 g/dL (31.0-37.0); MCV 86.2 fL (80.0-100.0); NEUTROPHILS 43.9 % (40-80); RBC 3.41 10x6/uL (4.00-5.40); RDW 18.7 % (11.5-14.5)
[2017-06-29 06:38] LABS: ALBUMIN 2.9 g/dL (3.4-5.0); ANION GAP 12.4 mmol/L (8-16); BILIRUBIN - TOTAL 4.77 mg/dL (0.2-1.3); CALCIUM 7.9 mg/dL (8.5-10.1); POTASSIUM - SERUM 3.4 mmol/L (3.5-5.1); PROTEIN - SERUM 5.8 g/dL (6.4-8.2); VANCOMYCIN - RANDOM 27.2 ug/mL (10.0-20.0)
[2017-06-29 06:43] LABS: CREATININE - SERUM 1.4 mg/dL (0.6-1.3)
[2017-06-29 07:15] LABS: PLATELET COUNT 37 10x3/uL (130-400)
--- NOTE | 2017-06-29 08:20 | NUR ---
PT SEEN AND ASSESSED. DRESSING TO RIGHT PORT NOT CHANGED YESTERDAY-CHANGED THIS AM PER POLICY AND DATED. DRESSING TO RIGHT CHEST CLEAN DRY AND INTACT. GENERALIZED EDEMA FROM TRUNK TO FEET-2+ NO SKIN BREAKDOWN NOTED. PETECHIA NOTED TO BACK-PT STATES HAD BEEN SCRATCHING. CALL LIGHT IN REACH.
--- NOTE | 2017-06-29 13:35 | NUR ---
GOWN AND BED PAD SATURATED WITH SERIOUSANGIOUS FLUID. DRESSING TO RIGHT CHEST WALL CHANGED WITH BOX 4X4S AND TAPE. GOWN AND LINEN CHANGED.
--- NOTE | 2017-06-29 14:30 | NUR ---
Nutrition Follow Up: Chart reviewed. Pt is eating 51% meal avg on a regular diet. No BM since admit. Labs reviewed. Meds noted including Lasix, Albumin. Rec continue current diet. Rec consider an appetite stimulant. Will continue to provide selective menus and honor food preferences. RD following.
[2017-06-29 15:48] LABS: BASOPHILS 1.7 % (0-2); EOSINOPHILS 0.4 % (0-7); HEMATOCRIT 29.2 % (36.0-48.0); IMMATURE GRANULOCYTES 0.8 % (0-5); LYMPHOCYTES 31.5 % (15-50); MCH 29.7 pg (26.0-34.0); MCHC 34.2 g/dL (31.0-37.0); MCV 86.6 fL (80.0-100.0); MEAN PLATELET VOLUME 10.2 fL (7.4-10.4); MONOCYTES 25.3 % (2-11); NEUTROPHILS 40.3 % (40-80); RBC 3.37 10x6/uL (4.00-5.40); RDW 18.7 % (11.5-14.5); WBC 2.4 10x3/uL (4.8-10.8)
[2017-06-29 16:34] LABS: PLATELET COUNT 49 10x3/uL (130-400)
--- NOTE | 2017-06-29 18:07 | NUR ---
SPECIALTY AIR MATTRESS APPLIED TO BED. DRESSING TO RIGHT CHEST AREA SATURATED AND CHANGED AGAIN WITH BOX 4X4 ABD PAD AND TAPE. GOWN CHANGED. NO NEEDS AT THIS TIME. CALL LIGHT IN REACH
--- NOTE | 2017-06-29 19:38 | NUR ---
RECIEVED LYING IN BED WITH EYES OPEN AND TV ON. O2@2.5 LITERS PER NASAL CANNULA IN PLACE. ALERT AND ORIENTED X4. DRESSING TO RIGHT SIDE OF ABD.. CLEAN, DRY AND INTACT. DENIES ANY PAIN OR DISCOMFORT AT THIS TIME.
--- NOTE | 2017-06-29 22:50 | NUR ---
C/O SOB. GOT OUT OF BED AND UNABLE TO REDIRECT HER TO BED. O2 SAT 91% AT THAT TIME. RESP. ON THE FLOOR AND WENT IN TO GIVE TREATMENT. BEFORE TX WAS GIVEN SHE STARTED TO CALM DOWN AND SATS UP TO 94%. REFUSED TO DO ENTIRE TX AND TOLD THERAPIST IT'S NOT WORKING. SATS AT THAT TIME ARE 96%. ALSO, WHEN CHECKING HER SATS SHE TOOK PROBE OFF AND THREW IT ON THE BED. REFUSES TO LAY DOWN. PULLED DRESSING OFF OF HER SIDE AND THREW IT ON THE FLOOR. REFUSES TO HAVE DRESSING PUT BACK ON STATES "I CAN BREATH BETTER WHEN IT DRAINS". UNABLE TO REDIRECT AT THIS TIME
[2017-06-30] VITALS (11 sets, daily range): BP systolic 82–118; BP diastolic 45–68
[2017-06-30 05:48] LABS: HEMATOCRIT 32.1 % (36.0-48.0); HEMOGLOBIN 11.1 g/dL (12-16); MCH 29.8 pg (26.0-34.0); MCHC 34.6 g/dL (31.0-37.0); MCV 86.3 fL (80.0-100.0); MEAN PLATELET VOLUME 10.8 fL (7.4-10.4); RBC 3.72 10x6/uL (4.00-5.40); RDW 18.7 % (11.5-14.5)
[2017-06-30 05:57] LABS: PLATELET COUNT 67 10x3/uL (130-400); WBC 7.9 10x3/uL (4.8-10.8)
[2017-06-30 06:02] LABS: INR 1.44 (0.85-1.17); PROTIME 17.4 SECONDS (11.6-15.0)
[2017-06-30 06:07] LABS: ALBUMIN 3.2 g/dL (3.4-5.0); ANION GAP 12.9 mmol/L (8-16); BILIRUBIN - TOTAL 4.8 mg/dL (0.2-1.3); CALCIUM 8.2 mg/dL (8.5-10.1); CREATININE - SERUM 1.7 mg/dL (0.6-1.3); POTASSIUM - SERUM 3.9 mmol/L (3.5-5.1); VANCOMYCIN - RANDOM 17.1 ug/mL (10.0-20.0)
--- NOTE | 2017-06-30 06:51 | NUR ---
REFUSED PAIN MEDICATION THIS AM. ASKED THIS NURSE TO CLOSE MINIBLINDS BECAUSE HE WAS WATCHING HER. ASKED WHO AND SHE STATED FROG. CLOSED THE BLINDS AND NEVER SAW ANYONE OUTSIDE THE WINDOW.
--- NOTE | 2017-06-30 07:00 | NUR ---
REPORT RECIEVED ASSUMED CARE. PATIENT IN CHAIR WITH IV INTACT. NO COMPLAINTS AT THIS TIME. SITTING UP IN CHAIR LAYING HEAD DOWN ON BLANKET. STATED SHE FEELS BETTER SITTING THIS WAY BC IT HELPS HER BREATHE BETTER. CALL LIGHT WITHIN REACH.
[2017-06-30 08:06] LABS: LYMPHOCYTES 42 % (15-50); MONOCYTES 13 % (2-11); NEUTROPHILS 32 % (40-80)
[2017-06-30 08:07] LABS: ANISOCYTOSIS OCC; HYPOCHROMASIA OCC; PLATELET ESTIMATE DECREASED
--- NOTE | 2017-06-30 12:45 | NUR ---
PATIENT SITTING UP IN CHAIR. STATED SHE IS OK IF SHE SITS STILL. IV INTACT. CALL LIGHT WITHIN REACH.
--- NOTE | 2017-06-30 14:50 | NUR ---
PATIENT SITTING UP IN CHAIR TRYING TO REST. NO COMPLAINTS. IV INTACT. CALL LIGHT WITHIN REACH.
--- NOTE | 2017-06-30 16:20 | NUR ---
PATIENT TO GET PARACENTESIS. ASKED FOR AIR MATRESS TO BE REMOVED FROM BED AT THIS TIME. REMOVED AND PLACED IN SOILED UTILITY. CALL LIGHT WITHIN REACH.
--- NOTE | 2017-06-30 17:33 | NUR ---
PT TO ICU AT THIS TIME FROM CT AT THIS TIME.
--- NOTE | 2017-06-30 17:46 | NUR ---
PT TO ICU AFTER DIFFICULTY BREATHING DURING PARACENTESIS. PT TAKEN TO ICU. PT CONT TO LABOR TO BREATHE, PT ON 6L NC. O2 SAT 96% SEE SHIFT ASSESSMENT FOR FURTHER DETAILS.
--- NOTE | 2017-06-30 19:10 | NUR ---
PT AOX4, NO C/O OF PAIN AT THIS TIME. LABORED RESPIRATIONS. 6L O2 VIA NC. HOB @ 45 DEGREES. SPO2 96. LUNG SOUNDS WHEEZES/DIMINISHED. S1S2 HEARD, PERIPHERAL PULSES PRESENT. BOWEL SOUNDS HYPOACTIVE. ABD DISTENDED, WITH PARACENTESIS INCISION OPEN TO AIR. RIGHT SIDE WITH DSG FROM PREVIOUS PLEUREX SITE. SMALL AMOUT OF YELLOW DRAINAGE NOTED. YOUNGBLOOD CATH INTACT WITH DARK URINE PRESENT. PT REPOSITIONED FOR COMFORT. PARTIAL LINEN CHANGE COMPLETE. DENIES FURTHER NEEDS. ROOM VISIBLE FROM NURSES STATION. CALL LIGHT WITHIN PT REACH. CPOC.
--- NOTE | 2017-06-30 19:20 | NUR ---
YOUNGBLOOD INSERTED WITH STERILE TECHNIQUE, IMMEDIATE RETURN OF DARK BROWN URINE, > 1000ML
[2017-06-30 20:12] LABS: APPEARANCE CLEAR (CLEAR); BILIRUBIN NEGATIVE (NEGATIVE); COLOR AMBER (YELLOW); GLUCOSE NEGATIVE (NEGATIVE); KETONE NEGATIVE (NEGATIVE); LEUKOCYTE ESTERASE NEGATIVE (NEGATIVE); NITRITE NEGATIVE (NEGATIVE); PROTEIN NEGATIVE (NEGATIVE); UROBILINOGEN NORMAL (NORMAL)
--- NOTE | 2017-06-30 21:00 | NUR ---
VISITORS AT BEDSIDE. UPDATE GIVEN AND QUESTIONS ANSWERED. VSS, DENIES NEEDS AT THIS TIME. CPOC.
--- NOTE | 2017-06-30 23:00 | NUR ---
REASSESSMENT COMPLETE, SEE FLOWSHEET FOR ALL FINDINGS. NO ACUTE CHANGES NOTED AT THIS TIME. FRESH WATER TO BEDSIDE PER REQUEST. PT REPOSITIONED FOR COMFORT. DENIES NEEDS AT THIS TIME. CPOC.
[2017-07-01] VITALS (24 sets, daily range): BP systolic 69–115; BP diastolic 34–85
--- NOTE | 2017-07-01 01:00 | NUR ---
PT RESTING WITH VSS AT THIS TIME. REPOSITIONED FOR COMFORT. NO ACUTE CHANGES NOTED. DENIES NEEDS. CPOC.
--- NOTE | 2017-07-01 03:00 | NUR ---
PT RESTING QUIETLY WITH VSS AT THIS TIME. RESPIRATIONS SHALLOW, SPO2 96. HOB @ 40 DEGREES. NO S/S OF PAIN AT THIS TIME. NO ACUTE CHAGNES AT THIS TIME. ORAL CARE PROVIDED. REPOSITIONED FOR COMFORT. DENIES FURTHER NEEDS. CPOC.
[2017-07-01 04:50] LABS: INR 1.66 (0.85-1.17); PROTIME 19.6 SECONDS (11.6-15.0)
[2017-07-01 04:55] LABS: HEMATOCRIT 30.8 % (36.0-48.0); HEMOGLOBIN 10.7 g/dL (12-16); MCH 29.6 pg (26.0-34.0); MCHC 34.7 g/dL (31.0-37.0); MCV 85.1 fL (80.0-100.0); MEAN PLATELET VOLUME 10.1 fL (7.4-10.4); PLATELET COUNT 97 10x3/uL (130-400); RBC 3.62 10x6/uL (4.00-5.40); RDW 18.9 % (11.5-14.5); WBC 22.9 10x3/uL (4.8-10.8)
[2017-07-01 05:04] LABS: ALBUMIN 3.4 g/dL (3.4-5.0); ANION GAP 14.5 mmol/L (8-16); BILIRUBIN - TOTAL 4.64 mg/dL (0.2-1.3); CALCIUM 8.4 mg/dL (8.5-10.1); CARBON DIOXIDE 24.2 mmol/L (21.0-32.0); POTASSIUM - SERUM 3.7 mmol/L (3.5-5.1); VANCOMYCIN - RANDOM 13.9 ug/mL (10.0-20.0)
--- NOTE | 2017-07-01 05:29 | NUR ---
PT SLEEPING QUIETLY WITH VSS AT THIS TIME. SPO2 96. NO S/S OF PAIN AT THIS TIME. NO S/S OF ACUTE DISTRESS AT THIS TIME. PT ALLOWED TO CONTINUE SLEEPING UNDISTURBED AT THIS TIME. ROOM VISIBLE FROM NURSES STATION. CPOC.
[2017-07-01 05:47] LABS: BASOPHILS 2 % (0-2); LYMPHOCYTES 17 % (15-50); MONOCYTES 4 % (2-11); NEUTROPHILS 60 % (40-80); PLATELET ESTIMATE DECREASED
--- NOTE | 2017-07-01 07:15 | NUR ---
REC'ED REPORT FROM OUT GOING RN
--- NOTE | 2017-07-01 09:30 | NUR ---
DR. WAKEFIELD AT BEDSIDE - REVIEWED LABS, WOUND CULTURE, WBC: 22.9, BNP 172,[phone]. REQUEST TO START DOBUTIMINE IV FOR FLUID VOLUME OVERLOAD. AND D/C VANCOMYCIN START LEFOFLOXACIN. 0940 - PAGED AND SPOKE TO DR. IBARRA - ORDERS REC'D - SEE MAR
--- NOTE | 2017-07-01 10:15 | NUR ---
CHANGED DRESSING ON RIGHT SIDE CHEST - BATHED PT - CHANGED BED CLOTHES AND LINENS - PT TRANSFERRED TO BED SIDE CHAIR - WITH ASSISTANCE X 2 - PT C/O LEGS FEELING WEAK. CPOC
--- NOTE | 2017-07-01 11:00 | NUR ---
ASSESSMENT COMPLETE - PT RESTING IN CHAIR - VOICED NO CONCERNS.
--- NOTE | 2017-07-01 12:00 | NUR ---
PT REFUSED TO EAT - ONLY REQUESTED TEA - CPOC
--- NOTE | 2017-07-01 13:00 | NUR ---
TRANSFERRED PT BACK TO BED AX2 - PT RESTING WITH EYES CLOSED - RESPIRATIONS REG/RATE/RHTYHM. CPOC
--- NOTE | 2017-07-01 15:00 | NUR ---
CALLED DR. IBARRA - URINE OUTPUT 200 MLS FOR PAST 12 HOURS. - MD INSTRUCTED TO TITRATE DOBUTIMINE UP TO 5MCG/KG/MIN - NOTED -
--- NOTE | 2017-07-01 16:30 | NUR ---
PT REFUSED TO EAT - OFFERED POPCYCLE - PT ATE APPROX 1/2. DECLINED ANY THING TO EAT. CPOC
--- NOTE | 2017-07-01 18:00 | NUR ---
FAMILY AT BEDSIDE VISITING - PT VOICED NO CONCERNS
--- NOTE | 2017-07-01 18:31 | EC ---
PATIENT:MAGDALENA FREEMAN DATE OF SERVICE: 06/23/17 SEX: F MEDICAL RECORD: [id number] DATE OF : 58 LOCATION:[place] [address] AGE OF PATIENT: 57 ADMISSION DATE: 06/23/17 REFERRING PHYSICIAN: INTERPRETING PHYSICIAN: JEANINE HDEZ MD ECHOCARDIOGRAM REPORT ECHO CHARGES 4 ECHO COMPLETE CLINICAL DIAGNOSIS: FLUID RETENTION/EDEMA ECHOCARDIOGRAPHIC MEASUREMENTS (adult normal given) AC root (d.<3.7cm) 3.5 cm LV Septum d (<1.2 cm> 1.1 cm Valve Excursion 2.2 cm LV Septum (systole) 1.5 cm Left Atria (s.<4.0cm> 4.0 cm LVPW d(<1.2cm) 1.1 cm RV (d.<2.3cm) 3.0 cm LVPW (sytole) 1.6 cm LV diastole(<5.6CM) 6.1 cm MV E-F(>70mm/sec) cm LV systole 4.1 cm LVOT Diameter 2.0 cm MV exc.(>10mm) cm Est.ejection fraction (50-75%) % Pericardial Effusion N DOPPLER: LVIT cm/sec A 45.0 cm/sec E 153 cm/sec LA cm/sec RVSP 34.0 mmHg LVOT 102 cm/sec AOP1/2T m/s Asc. Ao 126 cm/sec RVOT 52.0 cm/sec RA cm/sec PA 68.0 cm/sec AV Gradient Peak 6.3 mmHg AV Mean 3.5 mmHg AV Area 2.7 cm MV Gradient Peak 9.0 mmHg MV Mean 2.4 mmHg MV Area cm COMMENTS: Precision Machining Instructor: Keenan PHILLIPOE Filter Tank Tender: 4 Dr. Hdez TAPE# PACS DATE OF SERVICE: 07/01/2017 FINDINGS: 1. The left ventricle appears to be mildly dilated. There is wall motion abnormality seen in the anterior septum. There is akinetic to significantly hypokinetic segment. The inflow velocities into that area suggest a diastolic dysfunction. The overall ejection fraction is in the 25% range. 2. The mitral valve is overall grossly normal. The mitral valve has trace mitral regurgitation. 3. The aortic valve is structurally normal. ECHOCARDIOGRAM REPORT [id number] MAGDALENA FREEMAN 4. The right atrium appears to be normal in its appearance. 5. The right ventricle is normal size and function. 6. The pulmonic valve is not well visualized. There is trace pulmonic insufficiency. 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 The overall ejection fraction is in the 20%-25% range. The other manuel at this point in time are actually hyperdynamic. There does not appear to be any significant concomitant valvular disease. At this point, there is trace pericardial effusion. The IVC was not well visualized. TRANSINT:[id number] Voice Confirmation ID: [id number] DOCUMENT ID: [id number] JEANINE HDEZ MD at 1831 CC: [id number] DICTATION DATE: 07/01/17 1023 FEATHER MAKER: 07/01/17 1554 ADM IN [facility] [address] [place] [id number]
--- NOTE | 2017-07-01 19:14 | NUR ---
REPORT GIVEN TO ONCOMING RN
--- NOTE | 2017-07-01 19:15 | NUR ---
PT AOX4, NO C/O PAIN AT THIS TIME. RESPIRATIONS SHALLOW, LABORED WITH MOVEMENT. LUNG SOUNDS WHEEZES. ORAL CARE PROVIDED. 6L O2 VIA NC, SPO2 96. S1S2 HEARD, PERIPHERAL PULSES PRESENT. BOWEL SOUNDS ACTIVE. YOUNGBLOOD CATH INTACT WITH SCANT DARK URINE PRESENT. HOB AT 40 DEGREES. RIGHT SIDE WITH DSG WITH YELLOW DRAINAGE PRESENT. 4+ PITTING EDEMA NOTED TO THE FEET BILATERALLY. REPOSITIONED FOR COMFORT. DENIES FURTHER NEEDS AT THIS TIME. CPOC.
--- NOTE | 2017-07-01 21:00 | NUR ---
NO VISITORS AT THIS TIME. DENIES NEEDS. VSS.
--- NOTE | 2017-07-01 23:13 | NUR ---
PT RESTING AT THIS TIME WITH VSS, NO S/S OF ACUTE DISTRESS OR C/O PAIN. PT REPOSITIONED FOR COMFORT. FRESH WATER TO BEDSIDE. PARTIAL LINEN CHANGE COMPLETE. NO ACUTE CHANGES NOTED. DENIES FURTHER NEEDS. CALL LIGHT AND BEDSIDE TABLE WITHIN PT REACH. CPOC.
[2017-07-02] VITALS (30 sets, daily range): BP systolic 94–137; BP diastolic 61–91
--- NOTE | 2017-07-02 02:54 | NUR ---
RIGHT SIDE DSG CHANGED. GOWN AND COMPLETE LINEN CHANGE. PARTIAL BATH. PT WITH LABORED BREATHING UPON EXERTION, TIRES EASILY. PT REPOSITIONED UP IN BED WITH HOB @ 40 DEGREES. SPO2 95, 6L O2. DENIES PAIN AT THIS TIME. RT TO PERFORM BREATHING TREATMENT AT THIS TIME. DENIES FURTHER NEEDS. CALL LIGHT AND BEDSIDE TABLE WITHIN PT REACH. CPOC.
[2017-07-02 04:52] LABS: HEMATOCRIT 27.9 % (36.0-48.0); HEMOGLOBIN 9.9 g/dL (12-16); MCH 29.9 pg (26.0-34.0); MCHC 35.5 g/dL (31.0-37.0); MCV 84.3 fL (80.0-100.0); MEAN PLATELET VOLUME 9.7 fL (7.4-10.4); PLATELET COUNT 104 10x3/uL (130-400); RBC 3.31 10x6/uL (4.00-5.40); RDW 19.1 % (11.5-14.5); WBC 41.5 10x3/uL (4.8-10.8)
[2017-07-02 05:00] LABS: INR 2.03 (0.85-1.17)
[2017-07-02 05:04] LABS: ALBUMIN 3.3 g/dL (3.4-5.0); ANION GAP 14.6 mmol/L (8-16); BILIRUBIN - TOTAL 5.38 mg/dL (0.2-1.3); CALCIUM 8.1 mg/dL (8.5-10.1); CARBON DIOXIDE 22.6 mmol/L (21.0-32.0); CREATININE - SERUM 1.9 mg/dL (0.6-1.3); POTASSIUM - SERUM 3.2 mmol/L (3.5-5.1); PROTEIN - SERUM 5.7 g/dL (6.4-8.2)
[2017-07-02 05:10] LABS: LYMPHOCYTES 8 % (15-50); MONOCYTES 4 % (2-11); NEUTROPHILS 49 % (40-80); PLATELET ESTIMATE DECREASED
--- NOTE | 2017-07-02 06:50 | NUR ---
PT UP IN BED, VSS, WITH NO C/O PAIN. FRESH WATER TO BEDSIDE. DENIES NEEDS AT THIS TIME. CALL LIGHT AND BEDSIDE TABLE WITHIN PT REACH. CPOC.
--- NOTE | 2017-07-02 07:50 | NUR ---
SITTIG UP ON SIDE OF BED EATING BREAKFAST. NOTED SOME SHORTNESS OF BREATH, OXYGEN SATURATION AT 96% WITH OXYGEN AT 6L VIA NC. NO ACUTE DISTRESS NOTED. PT LOWER EXTREMITIES WITH EDEMA +3 BILATERALLY. WILL CONTINUE PLAN OF CARE.
--- NOTE | 2017-07-02 08:39 | NUR ---
NOTED DCD DRAIN SITE TO RT SIDE TO BE DRAINING MODERTE AMOUNT OF CLEAR YELLOW FLUID. DRESSING CHANGED AT THIS TIME. ALSO AT THIS TIME TOTAL LINEN CHANGE PROVIDED. WILL CONTINUE PLAN OF CARE.
--- NOTE | 2017-07-02 10:04 | NUR ---
PT STATED "I DON'T WANT TO DO THIS ANYMORE." DR FRENCH IN ROOM SPEAKING WITH PT. WILL CONTINUE PLAN OF CARE.
--- NOTE | 2017-07-02 10:21 | NUR ---
DR FRENCH ON PHONE SPEAKING WITH PTS FAMILY, RAÚL VALERA TO NOTIFY OF STATUS CHANGE ON PT. RAÚL VALERA IS ON HIS WAY TO SPEAK WITH DR FRENCH IN PERSON.
--- NOTE | 2017-07-02 10:22 | NUR ---
DR FRENCH ON PHONE SPEAKING WITH PTS FAMILY, RAÚL MORAIMA, ABOUT PT STATUS. NOTED RAÚL MORAIMA IS ON HIS WAY AT THIS TIME TO SPEAK WITH DR FRENCH IN PERSON.
--- NOTE | 2017-07-02 10:56 | NUR ---
NOTIFIED DR BENZ OF CONSULT, STATED HE WOULD BE BY SHORTLY TO SEE PT.
--- NOTE | 2017-07-02 11:16 | NUR ---
OXIMIZER AT 10L PLACED AT THIS TIME.
--- NOTE | 2017-07-02 11:29 | NUR ---
FAMILY AT BEDSIDE SPEAKING WITH PT. PT UP IN CHAIR. WILL CONTINUE PLAN OF CARE.
--- NOTE | 2017-07-02 11:35 | NUR ---
RECIEVED CALL FROM DR BENZ TO CONSULT [facility] FOR CARDIOLOGY FOR EJECTION FRACTION OF 25%. PAGED AT THIS TIME.
--- NOTE | 2017-07-02 11:47 | NUR ---
SPOKE WITH DR HDEZ OF CONSULT, ORDERS RECIEVED FOR BNP AND TROPONIN.
[2017-07-02 13:04] LABS: POTASSIUM - SERUM 4.2 mmol/L (3.5-5.1)
[2017-07-02 13:05] LABS: TROPONIN-I 0.139 ng/mL (0.000-0.060)
--- NOTE | 2017-07-02 13:24 | NUR ---
NOTED ELEVATED TROPONIN LEVEL, NOTIFIED DR HDEZ OF LAB LEVEL, ORDER RECIEVED TO RECHECK LEVEL Q6H X 3. PT SITTING UP IN BED VISITING WITH FAMILY. STILL HAS RESPIRATIONS IN THE MID 20S AND EPISODES OF INCREASED SHORTNESS OF BREATH. WILL CONTINUE TO OBSERVE.
--- NOTE | 2017-07-02 13:27 | NUR ---
PER DR HDEZ, KEEP DOBUTAMINE AT 5MCG AND DO NOT TITRATE.
--- NOTE | 2017-07-02 13:40 | NUR ---
DRESSING CHANGED TO RT DCD DRAIN SITE. MODERATE YELLOW DRAINAGE NOTED. WILL CONTINUE PLAN OF CARE.
--- NOTE | 2017-07-02 14:11 | NUR ---
DR BENZ IN ROOM SPEAKING WITH PT AND PTS FAMILY. NO ACUTE DISTRESS NOTED. WILL CONTINUE PLAN OF CARE.
--- NOTE | 2017-07-02 18:32 | NUR ---
UP IN CHAIR BESIDE BED AT THIS TIME VISITING WITH FAMILY. NO ACUTE DISTRESS NOTED. WILL CONTINUE PLAN OF CARE.
--- NOTE | 2017-07-02 19:00 | NUR ---
REPORT RECEIVED. ASSESSMENT COMPLETE PER FLOW SHEET. PT SITTING IN CHAIR. ALERT AND ORIENTED. YELLOW SCLERA IN BOTH EYES. 10 L OXYGEN VIA OXYMIZER. S1S2 PRESENT. RADIAL PULSES PALP BILAT. POPLITEAL PULSES AUDIBLE VIA DOPPLER. EDEMA NOTED TO UPPER AND LOWER EXTREMITIES. TELEMETRY MONITORING RATE OF 101. BS HYPOACTIVE X4. INCISION SITE ON R SIDE DUE TO PREVIOUS PLEUREX, DRESSING INTACT. ABDOMENAL INCISION FROM PREVIOUS PARACENTESIS, DRESSING INTACT. INCISION FROM PREVIOUS PARACENTESIS, DRESSING INTACT. RASH/REDDENED AREA UNDER RT BREAST NOTED, PT STATES "IT'S FROM PREVIOUS DRESSING CHANGES." REDDENED AREA AND SCABS NOTED IN MIDDLE BACK, PT STATES "IT'S FROM LAYING IN BED." RT CHEST INPLANTED PORT INFUSING NS AT 10 MLS/HR, DOBUTAMINE 5 MCG/KG/MIN, AND BICARB AT 50 MLS/HR. SEE FLOW SHEET FOR COMPLETE ASSESSMENT. CALL LIGHT AND BELONGINGS WITHIN REACH. WILL CONTINUE TO MONITOR.
--- NOTE | 2017-07-02 19:11 | NUR ---
SPOKE WITH DR HDEZ OF [facility] I&O, NOTED ORDER FOR ONE TIME DOSE OF 80MEQ LASIX AND HAVE POTASSIUM CHECKED IN THE MORNING. ORDER PLACED.
--- NOTE | 2017-07-02 20:00 | NUR ---
PT SITTING IN CHAIR. I&O'S OBTAINED, SEE FLOW SHEET FOR DETAILS. PT DENIES NEEDS AT THIS TIME. CALL LIGHT AND BELONGINGS WITHIN REACH.
--- NOTE | 2017-07-02 21:00 | NUR ---
PT SITTING IN CHAIR. I&O'S OBTAINED, SEE FLOW SHEET FOR DETAILS. PT DENIES NEEDS AT THIS TIME. TACHYPNEA NOTED. ENCOURAGED PT TO RELAX AND TAKE SLOW DEEP BREATHS, PT VERBALIZED UNDERSTANDING. WILL CONTINUE TO MONITOR.
--- NOTE | 2017-07-02 21:00 | NUR ---
BOYFRIEND AT BED SIDE. PT DENIES NEEDS AT THIS TIME. CALL LIGHT AND BELONGINGS WITHIN REACH. WILL CONTINUE TO MONITOR.
--- NOTE | 2017-07-02 22:00 | NUR ---
SITTING IN CHAIR. I&O'S OBTAINED. TACHYPNEA STILL NOTED, TEACHING ABOUT TAKING SLOW DEEP BREATHS REINFORCED, PT VERBALIZED UNDERSTANDING. CALL LIGHT AND BELONGINGS WITHIN REACH. WILL CONTINUE TO MONITOR.
--- NOTE | 2017-07-02 23:00 | NUR ---
REASSESSMENT COMPLETE PER FLOW SHEET. NO ACUTE CHANGES NOTED. SEE FLOW SHEET FOR DETAILS. VSS. CALL LIGHT AND BELONGINGS WITHIN REACH. WILL CONTINUE TO MONITOR.
--- NOTE | 2017-07-02 23:40 | NUR ---
ASSISTED PT BACK IN BED X2 RN'S. PT GOT AGITATED DURING THE PROCESS, ALLOWED HER TO REST ON SIDE OF THE BED, THEN ASSISTED IN POSITIONING HER IN BED. HOB ELEVATED TO 45 DEGREES PER PT REQUEST, PT STATES "I CANNOT LAY FLAT, BECAUSE I HAVE TROUBLE BREATHING. PT STILL AGITATED FROM MOVING, ENCOURAGED HER TO TAKE SLOW DEEP BREATHS AND REMAIN CALM, PT VERBALIZED UNDERSTANDING. CALL LIGHT AND BELONGINGS WITHIN REACH. STILL TACHYPNEIC BUT OTHER VSS. WILL CONTINUE TO MONITOR.
[2017-07-03] VITALS (24 sets, daily range): BP systolic 94–114; BP diastolic 6–86
--- NOTE | 2017-07-03 | NUR ---
PT LAYING IN BED, NO AGITATION NOTED. DENIES NEEDS AT THIS TIME. I&O'S OBTAINED. CALL LIGHT AND BELONGING WITHIN REACH. WILL CONTINUE TO MONITOR.
--- NOTE | 2017-07-03 01:00 | NUR ---
PT LAYING IN BED, NO AGITATION NOTED. I&O'S OBTAINED. DENIES NEEDS. WILL CONTINUE TO MONITOR.
--- NOTE | 2017-07-03 02:00 | NUR ---
LAYING IN BED, NO DISTRESS NOTED. VSS. I&O'S OBTAINED. DENIES NEEDS AT THIS TIME. CALL LIGHT AND BELONGINGS WITHIN REACH. WILL CONTINUE TO MONITOR.
--- NOTE | 2017-07-03 03:00 | NUR ---
REASSESSMENT COMPLETE PER FLOW SHEET, SEE FOR DETAILS. I&O'S OBTAINED. DENIES NEEDS AT THIS TIME. CALL LIGHT AND BELONGINGS WITHIN REACH. WILL CONTINUE TO MONITOR.
--- NOTE | 2017-07-03 04:00 | NUR ---
I&O'S OBTAINED. PT DENIES NEEDS AT THIS TIME. CALL LIGHT AND BELONGINGS WITHIN REACH. BED IN LOWEST POSITION. WILL CONTINUE TO MONITOR.
[2017-07-03 04:59] LABS: HEMATOCRIT 28.8 % (36.0-48.0); HEMOGLOBIN 10.1 g/dL (12-16); MCH 29.5 pg (26.0-34.0); MCHC 35.1 g/dL (31.0-37.0); MCV 84.2 fL (80.0-100.0); PLATELET COUNT 104 10x3/uL (130-400); RBC 3.42 10x6/uL (4.00-5.40); RDW 19.7 % (11.5-14.5); WBC 53.4 10x3/uL (4.8-10.8)
--- NOTE | 2017-07-03 05:00 | NUR ---
R SIDE DRESSING CHANGED, MODERATE AMOUNT OF CLEAR YELLOW DRAINAGE NOTED. I&O'S OBTAINED. DENIES NEEDS AT THIS TIME. CALL LIGHT AND BELONGINGS WITHIN REACH. WILL CONTINUE TO MONITOR.
[2017-07-03 05:09] LABS: LYMPHOCYTES 11 % (15-50); MONOCYTES 3 % (2-11); NEUTROPHILS 77 % (40-80); PLATELET ESTIMATE DECREASED
[2017-07-03 05:10] LABS: ALBUMIN 3.7 g/dL (3.4-5.0); BILIRUBIN - TOTAL 6.17 mg/dL (0.2-1.3); CALCIUM 8.6 mg/dL (8.5-10.1); CARBON DIOXIDE 27.9 mmol/L (21.0-32.0); MAGNESIUM - SERUM 1.5 mg/dL (1.8-2.4); PROTEIN - SERUM 5.9 g/dL (6.4-8.2); VANCOMYCIN - RANDOM 18.2 ug/mL (10.0-20.0)
[2017-07-03 05:13] LABS: ANION GAP 12.3 mmol/L (8-16); POTASSIUM - SERUM 3.2 mmol/L (3.5-5.1)
--- NOTE | 2017-07-03 06:00 | NUR ---
I&O'S OBTAINED. MEDS ADMINISTERED PER EMAR. DENIES NEEDS AT THIS TIME. CALL LIGHT AND BELONGINGS WITHIN REACH.
--- NOTE | 2017-07-03 06:00 | NUR ---
NO VISITORS AT THIS MOMENT. I&O'S OBTAINED. PT DENIES NEEDS AT THIS TIME. CALL LIGHT AND BELONGINGS WITHIN REACH. WILL CONTINUE TO MONITOR.
--- NOTE | 2017-07-03 07:41 | NUR ---
SHIFT ASSESSMENT COMPLETE. PATIENT DENIES ANY NEEDS AT THIS TIME. PATIENT REFUES TO EAT BREAKFAST.
--- NOTE | 2017-07-03 09:30 | NUR ---
PATIENT SITTING UP IN CHAIR AND TOLERATING WELL. PATIENT DENIES ANY NEEDS AT THIS TIME.
--- NOTE | 2017-07-03 10:25 | NUR ---
NUTRITION MONITORING & EVAL CHART REVIEWED. PT UP TO CHAIR. PT REFUSING REG DIET THIS AM. WILL CONTINUE TO MONITOR DIET TOLERANCE, INTAKE. RD FOLLOWING
--- NOTE | 2017-07-03 11:30 | NUR ---
PATIENT BACK TO BED, VERY SOB AND LABORED BREATHING. ENCOURAGED PATIENT TO SLOW BREATHING BY BREATHING THROUGH NOSE AND OUT MOUTH.
--- NOTE | 2017-07-03 12:00 | NUR ---
PATIENT RESPIRATION LESS LABORED AT THIS TIME. PATIENT STATES SHE WILL TRY TO EAT SOME LUNCH. FAMILY AT BEDSIDE.
--- NOTE | 2017-07-03 14:19 | NUR ---
PATIENT SITTING UP ON BEDSIDE. FAMILY IN ROOM, AND PATIENT DENIES ANY NEEDS AT THIS TIME. CALL LIGHT WITHIN REACH, BED IN LOW POSITION.
--- NOTE | 2017-07-03 14:36 | NUR ---
PATIENT SITTING UP ON BEDSIDE, HAVING DIFFICULTY BREATHING. EXPLAINED TO PATIENT TO TAKE DEEP BREATHS THROUGH HER NOSE AND BLOW OUT HER MOUTH. PATIENT IS UNABLE TO DO THIS AT THIS TIME. PATIENT JUST RECEIVED HER UPDRAFT, WILL CONTINUE TO WATCH PATIENT
--- NOTE | 2017-07-03 17:00 | NUR ---
PATIENT STATES SHE WILL TRY TO EAT DINNER. FAMILY AT BEDSIDED. CALL LIGHT WITHIN REACH.
--- NOTE | 2017-07-03 17:40 | NUR ---
PATIENT WAS UNABLE TO EAT DINNER DUE TO SOB FROM MOVE BACK TO BED FROM CHAIR. LAURIE SHAKE GIVEN TO PATIENT TO SEE IF SHE COULD CONSUME SOME CALORIES.
--- NOTE | 2017-07-03 19:00 | NUR ---
REPORT RECEIVED. ASSESSMENT COMPLETE PER FLOW SHEET. AWAKE AND ALERT SITTING ON SIDE OF BED. DENIES PAIN AT THIS TIME. 10 L O2 VIA OXYMIZER. S1S2 PRESENT. TELEMETRY MONITORING RATE OF 96. RT CHEST IMPLANTED PORT INFUSING BICARB AT 50 MLS/HR, NS AT 10 MLS/HR, AND DOBUTAMINE AT 5 MCG/KG/MIN. BS ACTIVE X4. YOUNGBLOOD CATHETER SECURED DRAINING TONY URINE. PT TACHYPNEIC AT THE MOMENT, AFTER TEACHING PT TO TAKE SLOW DEEP BREATHS RESPIRATIONS DECREASE TO 20-24 BREATHS PER MINUTE. SEE FLOW SHEET FOR COMPLETE ASSESSMENT. DENIES NEEDS AT THIS TIME. CALL LIGHT AND BELONGINGS WITHIN REACH.
--- NOTE | 2017-07-03 19:30 | NUR ---
ASSISTED PT TO LAY IN BED. DENIES FURTHER NEEDS AT THIS TIME. CALL LIGHT AND BELONGINGS WITHIN REACH. BED IN LOWEST POSITION. WILL CONTINUE TO MONITOR.
--- NOTE | 2017-07-03 21:00 | NUR ---
BOYFRIEND AT BEDSIDE. PT DENIES NEEDS AT THIS TIME. CALL LIGHT AND BELONGINGS WITHIN REACH.
--- NOTE | 2017-07-03 23:00 | NUR ---
REASSESSMENT COMPLETE PER FLOW SHEET, SEE FOR DETAILS. NO ACUTE CHANGES NOTED. DENIES NEEDS AT THIS TIME. CALL LIGHT AND BELONGING WITHIN REACH. WILL CONTINUE TO MONITOR.
[2017-07-04] VITALS (24 sets, daily range): BP systolic 91–119; BP diastolic 50–88
--- NOTE | 2017-07-04 01:00 | NUR ---
LAYING IN BED RESTING. DENIES NEEDS AT THIS TIME. BED IN LOWEST POSITION. CALL LIGHT AND BELONGINGS WITHIN REACH. WILL CONTINUE TO MONITOR.
--- NOTE | 2017-07-04 02:50 | NUR ---
PT 02 SATURATION DROPPING, RESPIRATORY NOTIFIED. OXIMIZER NOW AT 15 L PER RESPIRATORY. ABG'S DRAWN.
--- NOTE | 2017-07-04 02:50 | NUR ---
PT O2 SAT DROPPING AT THIS TIME, BREATHS ARE MORE SHALLOW, ABG DRAWN,
--- NOTE | 2017-07-04 03:10 | NUR ---
DR. DEE PAGED AT THIS TIME,
--- NOTE | 2017-07-04 03:13 | NUR ---
UPDATE CALLED TO DAUGHTER BHUMI, STATES "SHE IS ON HER WAY"
--- NOTE | 2017-07-04 03:20 | NUR ---
DR. LUIZ MIXON
--- NOTE | 2017-07-04 03:30 | NUR ---
UPDATE CALLED TO DR. DEE, NEW ORDERS RECIEVED,
--- NOTE | 2017-07-04 03:44 | NUR ---
FAMILY AT BEDSIDE, UPDATE GIVEN
[2017-07-04 04:25] LABS: HEMATOCRIT 28.3 % (36.0-48.0); HEMOGLOBIN 9.6 g/dL (12-16); MCH 29.4 pg (26.0-34.0); MCHC 33.9 g/dL (31.0-37.0); MCV 86.5 fL (80.0-100.0); MEAN PLATELET VOLUME 10.9 fL (7.4-10.4); PLATELET COUNT 86 10x3/uL (130-400); RBC 3.27 10x6/uL (4.00-5.40); RDW 20.3 % (11.5-14.5); WBC 61.6 10x3/uL (4.8-10.8)
[2017-07-04 04:36] LABS: ALBUMIN 3.7 g/dL (3.4-5.0); ANION GAP 9.8 mmol/L (8-16); BILIRUBIN - TOTAL 6.11 mg/dL (0.2-1.3); CALCIUM 7.8 mg/dL (8.5-10.1); CARBON DIOXIDE 32.1 mmol/L (21.0-32.0); LYMPHOCYTES 6 % (15-50); MAGNESIUM - SERUM 1.5 mg/dL (1.8-2.4); NEUTROPHILS 88 % (40-80); PHOSPHOROUS 4.9 mg/dL (2.5-4.9); PLATELET ESTIMATE DECREASED; POTASSIUM - SERUM 3.9 mmol/L (3.5-5.1); PROTEIN - SERUM 6.1 g/dL (6.4-8.2); VANCOMYCIN - RANDOM 9.7 ug/mL (10.0-20.0)
--- NOTE | 2017-07-04 05:00 | NUR ---
PT LAYING IN BED, BIPAP ON. TEACHING REINFORCED ABOUT THE NEED TO KEEP BIPAP MASK ON.
--- NOTE | 2017-07-04 06:04 | NUR ---
FAMILY AT BEDSIDE. UPDATE GIVEN. WILL CONTINUE TO MONITOR.
--- NOTE | 2017-07-04 07:00 | NUR ---
Received report and assumed care of patient. Patient currently on Bipap, bilateral wrist restraints in place. Patient is thrashing in bed, reassurance provided and instructed to rest and let the Bipap work for her, she verbalizes understanding but quickly returns to attempting to remove Bipap. Right subclavian port with NS, Dobutamine and Bicarb gtt infusing. Joe cath draining dark concentrated urine. Expiratory crackles throughout lung rodarte. Sinus rhythm on CM, BP stable. See shift assessment flowsheet for all findings.
--- NOTE | 2017-07-04 07:57 | NUR ---
Patients father in room to see patient.
--- NOTE | 2017-07-04 08:02 | NUR ---
Dr. Ybarra in room to see patient. Dobutamine gtt d/c'd per order. Patient assessed per MD and myself. POC discussed.
--- NOTE | 2017-07-04 08:30 | NUR ---
here to see patient. Patient still on bipap. spoke with patient and instructed her to rest and relax. Wants me to okay Ativan order with Hunter. Hunter paged.
--- NOTE | 2017-07-04 11:03 | NUR ---
Dr. Harrison currently speaking with family. Patient remains calm and resting on Bipap.
--- NOTE | 2017-07-04 13:00 | NUR ---
Patient remains on Bipap, beginning to get aggitated. Attempts to calm patient made, bilateral restraints remain in place at this time.
--- NOTE | 2017-07-04 15:10 | NUR ---
Patients family here and spoken with regarding treatment options, hospice, next of kin and decision making.
--- NOTE | 2017-07-04 16:00 | NUR ---
Complete bed bath performed, patient tolerated well respiratory gutierrez, became aggitated towards the end. New STAT lock placed, kelley draining dark concentrated urine. Patient remains on BIPAP.
--- NOTE | 2017-07-04 17:12 | NUR ---
Patient aggitated, pulling off Bipap mask. Reassurance provided, patient repositioned, denies pain.
--- NOTE | 2017-07-04 18:46 | NUR ---
Family here, spoken to regarding hospice. Decision to be made this evening. Patient remains on Bipap
--- NOTE | 2017-07-04 19:00 | NUR ---
REPORT RECEIVED. ASSESSMENT COMPLETE PER FLOW SHEET. PT LAYING IN BED. BIPAP AT 100% OXYGEN. SCLERA YELLOW BILAT EYES. S1S2 PRESENT. RADIAL PULSES PALP. POPLITEAL AUDIBLE WITH DOPPLER. TELEMETRY MONITORING RATE OF 87. YOUNGBLOOD CATHETER SECURED DRAINING CONCENTRATED TONY URINE. SKIN WARM AND DRY, JAUNDICED IN COLOR. SCD'S ON. RT CHEST IMPLANTED PORT INFUSING NS AT 10 MLS/HR, BICARB AT 50 MLS/HR AND LASIX DRIP AT 10 MLS/HR. SEE FLOW SHEET FOR COMPLETE ASSESSMENT. BED IN LOWEST POSITION. DENIES NEEDS AT THIS TIME. WILL CONTINUE TO MONITOR.
--- NOTE | 2017-07-04 21:00 | NUR ---
FAMILY AT BED SIDE. UPDATE GIVEN, QUESTIONS ANSWERED. PT DENIES NEEDS. WILL CONTINUE TO MONITOR.
--- NOTE | 2017-07-04 23:00 | NUR ---
REASSESSMENT COMPLETE PER FLOW SHEET, SEE FOR DETAILS. DENIES NEEDS AT THIS TIME. CALL LIGHT WITHIN REACH. BED IN LOWEST POSITION. WILL CONTINUE TO MONITOR.
[2017-07-05] VITALS (10 sets, daily range): BP systolic 95–122; BP diastolic 57–85
--- NOTE | 2017-07-05 01:00 | NUR ---
LAYING IN BED RESTING. NO CHANGES NOTED. BED IN LOWEST POSITION. WILL CONTINUE TO MONITOR.
--- NOTE | 2017-07-05 03:00 | NUR ---
REASSESSMENT COMPLETE PER FLOW SHEET, NO ACUTE CHANGES NOTED. BED IN LOWEST POSITION. WILL CONTINUE TO MONITOR.
[2017-07-05 04:28] LABS: HEMATOCRIT 25.7 % (36.0-48.0); HEMOGLOBIN 8.9 g/dL (12-16); MCH 29.6 pg (26.0-34.0); MCHC 34.6 g/dL (31.0-37.0); MCV 85.4 fL (80.0-100.0); PLATELET COUNT 71 10x3/uL (130-400); RBC 3.01 10x6/uL (4.00-5.40); RDW 20.2 % (11.5-14.5); WBC 43.7 10x3/uL (4.8-10.8)
[2017-07-05 04:44] LABS: LYMPHOCYTES 3 % (15-50); NEUTROPHILS 88 % (40-80); PLATELET ESTIMATE DECREASED
[2017-07-05 04:54] LABS: ALBUMIN 3.4 g/dL (3.4-5.0); ANION GAP 11.1 mmol/L (8-16); BILIRUBIN - TOTAL 5.67 mg/dL (0.2-1.3); CALCIUM 8.2 mg/dL (8.5-10.1); CARBON DIOXIDE 31.2 mmol/L (21.0-32.0); CREATININE - SERUM 2.2 mg/dL (0.6-1.3); MAGNESIUM - SERUM 1.9 mg/dL (1.8-2.4); POTASSIUM - SERUM 3.3 mmol/L (3.5-5.1); PROTEIN - SERUM 5.7 g/dL (6.4-8.2); VANCOMYCIN - RANDOM 16.2 ug/mL (10.0-20.0)
--- NOTE | 2017-07-05 05:00 | NUR ---
SEDATED ON VENT. VSS. BED IN LOWEST POSITION. WILL CONTINUE TO MONITOR.
--- NOTE | 2017-07-05 06:00 | NUR ---
MOTHER AT BEDSIDE. QUESTIONS ANSWERED. UPDATE GIVEN. BED IN LOWEST POSITION. WILL CONTINUE TO MONITOR.
--- NOTE | 2017-07-05 09:10 | NUR ---
Spoke with family at length regarding prognosis & POC. Answered questions regarding hospice. They have requested DNR & Hospice evaluation. RICHARD Garcia received orders for both hospice & DNR. Referral has been faxed and called to Yamilka with [facility]. Waiting determination - anticipate transfer to hospice services when evaluation complete.
--- NOTE | 2017-07-05 09:10 | NUR ---
MOTHER REQUEST THAT PATIENT BE TAKEN OFF BI PAP MACHINE, PATIENT PLACED ON OXMYIZER AT 15 ML. BECOMING RESTLESS. FAMILY MOTHER, FATHER, BOYFRIEND. THEY ALL STATE THAT BHUMI PATIENTS DAUGHTER ARE IN AGREEMENT FOR PATIENT TO BE A DNR THEY UNDERSTAND THAT IF HER HEART STOPS WE WILL NOT BRING HER BACK. THEY WANT PLACED ON HOSPICE SERVICE. ANTONIA SAFE EXPERT IS HERE. PATIENT GIVEN ATIVEN 2 MG IV AROUND 8 AM THIS MORNING. SOME RESTLESSNESS AT TIMES. BUT WILL CALM DOWN. BILTERAL LUNG SOUNDS EXP WHEEZING AND RHOCHI, WEAK COUGH. ORAL CARE DONE. IV INFUSING RIGHT INFUSA PORT. YOUNGBLOOD CATH PATENT WITH TONY URINE.
--- NOTE | 2017-07-05 09:22 | NUR ---
Order rec'd from Dr. Huber for DNR & Hospice eval & admit. Confirmed with daughter, Mary, of hospice wishes.
--- NOTE | 2017-07-05 10:19 | NUR ---
BHUMI DAUGHTER IS HERE. REQUESTING HOSPICE. DR. FRENCH AND DR. ORONA HAVE TALKED WITH FAMILY WITH FAMILY. ORDERS FOR DNR AND HOSPICE.SHAMIKA MOORE IS HERE TO TALK WITH FAMILY AND SIGN CONSENTS FOR HOSPICE SERVICES, PATIENT TO BE DISCHARGE AND READMITTED INTO HOSPICE. ATIVAN 2 MG IV GIVEN WITH SOME IMPROVEMENT FOR RESTLESSNESS. FAMILY AT BEDSIDE. PATIENT DOES MAKE EYE CONTACT.
== END 2017-07-05 10:40 | disposition hospice, inpatient (51) | DRG 949 ==
LOC: D.ER 14:51 → OBSVTIME 18:07 → D.MS 18:07 → D.ICU 06-23 14:38
PROVIDERS: Family Medicine; Internal Medicine Cardiovascular Disease; Internal Medicine Pulmonary Disease; Nurse Practitioner Acute Care; Radiology Diagnostic Radiology; Surgery; ADMIT Family Medicine
PROC: 0W9G3ZZ Drainage of Peritoneal Cavity, Percutaneous Approach (ICD-10-PCS; principal; 2017-06-30 16:30)
PROC: 5A09457 Assistance with Respiratory Ventilation, 24-96 Consecutive Hours, Continuous Positive Airway Pressure (ICD-10-PCS; 2017-07-04)
DX: T85.898A Other specified complication of other internal prosthetic devices, implants and grafts, initial encounter (principal); I50.41 Acute combined systolic (congestive) and diastolic (congestive) heart failure; J90 Pleural effusion, not elsewhere classified; R18.8 Other ascites; E87.1 Hypo-osmolality and hyponatremia; I13.0 Hypertensive heart and chronic kidney disease with heart failure and stage 1 through stage 4 chronic kidney disease, or unspecified chronic kidney disease; N17.9 Acute kidney failure, unspecified; J98.11 Atelectasis; E87.2 Acidosis; J44.1 Chronic obstructive pulmonary disease with (acute) exacerbation; C67.9 Malignant neoplasm of bladder, unspecified; I10 Essential (primary) hypertension; J44.9 Chronic obstructive pulmonary disease, unspecified; D64.81 Anemia due to antineoplastic chemotherapy; D70.9 Neutropenia, unspecified; E88.09 Other disorders of plasma-protein metabolism, not elsewhere classified; E87.6 Hypokalemia; B96.5 Pseudomonas (aeruginosa) (mallei) (pseudomallei) as the cause of diseases classified elsewhere; D69.6 Thrombocytopenia, unspecified; N18.9 Chronic kidney disease, unspecified; F32.9 Major depressive disorder, single episode, unspecified

== ENCOUNTER 2017-07-05 10:41 | Inpatient (IN) | payer OTHER ==
[~2017-07-05] VITALS: Ht 172.7 cm; Wt 49.9 kg
[~2017-07-05 10:41] MED LIST changes: +ESTRACE1 MG PO
[2017-07-05 12:00] VITALS: BP 97/66
[2017-07-05 12:34] VITALS: BP 88/69; Ht 172.7 cm; Wt 49.9 kg
[2017-07-05 13:00] VITALS: BP 88/65
--- NOTE | 2017-07-05 13:03 | NUR ---
PATIENT ADMITTED TO HOSPICE SERVICES PER FAMILY REQUEST OF DAUGHTER BHUMI, MOTHER FATHER AND BOYFRIEND. JONATHAN FROM [facility] HERE CONSENTS SIGNED. PATIENT OPENS EYES TO QUESTIONS BUT DOES NOT ANSWER. SHE HAS HAD 2 MG OF ATIVAN TWICE TO DAY, PATIENT CONTINUES TO STRUGGLE TO BREATH. GASPING FOR BREATH. OXYGEN AT 15 LITERS PER OXYMYZER. LUNGS CONGESTED WITH EXP WHEEZING AND RHOCHI. SKIN WARM AND DRY. FEET EXTREMELY SWOLLEN AND HANDS SWOLLEN. GENRALIZED EDEMA ALL OVER. ABD DISTENED WITH BOWEL SOUNDS. DILAUDID BOTTOM SAW OPERATOR SET UP 0.5 MG CONTINOUS PER HOUR WITH 2 MG Q HOUR BOTTOM SAW OPERATOR. Jonathan HOSPICE NURSE EXPLAINED BOTTOM SAW OPERATOR TO PATIENTS FAMILY. HEAD OF BED ELEVATED 45 DEGREES. 2MG OF DILAUDID LOADING DOSE GIVEN FAMILY AT BEDSIDE.
--- NOTE | 2017-07-05 14:05 | NUR ---
patient gasping breathings. family at bedside report called to [facility]. TRANSFER TO ROOM 2237 PER BED.
--- NOTE | 2017-07-05 14:30 | NUR ---
RECEIVED PT FROM ICU VIA BED. O2 AT 15L VIA OXYMYZER, O2 SAT 88%. BP 68/44 RIGHT ARM. R-INFUSAPORT WITH NS INFUSING AT 10ML/HR. DILAUDID PHYSICAL THERAPY INSTRUCTOR 0.5 MG Q 1HR WITH 2MG BOLUS Q HOUR PRN. YOUNGBLOOD ADHERED TO RIGHT LEG. CLOUDY TONY URINE NOTED. TEMP. 97.8, RR 20. AGONAL BREATHING. FAMILY IN ROOM.
--- NOTE | 2017-07-05 16:05 | NUR ---
CALLED TO ROOM PER FAMILY. NO RESP OR PULSE NOTED. [facility] CALLED
--- NOTE | 2017-07-05 18:10 | NUR ---
[facility] C[facility] PROVIDED WITH HOSPICE NURSE. HOME SIGNED RELEASE FORMS. ASSISTED IN TRANFERING BODY FROM BED ONTO HOME BED.
== END 2017-07-05 18:30 | DRG 951 ==
LOC: D.ICU 10:41 → D.MS 14:40
PROVIDERS: ADMIT Legal Medicine
DX: Z51.5 Encounter for palliative care (principal); Z66 Do not resuscitate